=== PATIENT | male | born 1945 | race Caucasian/White ===

== ENCOUNTER 2017-11-24 18:32 | Emergency (ER) | payer MEDICARE | END 2017-11-24 18:40 | disposition left against medical advice (07) | LOC: ER 18:32 | DX: Z53.21 Procedure and treatment not carried out due to patient leaving prior to being seen by health care provider (principal) ==

== ENCOUNTER 2020-02-04 20:16 | Emergency (ER) | payer MEDICARE, OTHER ==
[~2020-02-04] VITALS: Ht 175.3 cm; Wt 80.3 kg
[2020-02-04] MEDS ORDERED: SILDENAFIL CITR20 M1 PO (20:57)
[2020-02-04] MEDS ORDERED: OPSUMIT10 MG PO (20:58)
[2020-02-04] MEDS ORDERED: Klor-Con 1010 MEQ PO (20:58)
[2020-02-04] MEDS ORDERED: FINA5 PO (20:59)
[2020-02-04] MEDS ORDERED: FURO40 PO (20:59)
[2020-02-04] MEDS ORDERED: ASPI81CH PO (21:00)
[2020-02-04] MEDS ORDERED: LIPITOR80 MG PO (21:00)
[2020-02-04] MEDS ORDERED: ALBU90OI INH (21:01)
[2020-02-04 22:01] LABS: BASOPHILS ABSOLUTE AUTO 0.06 K/mm3 (0.00-0.23); BASOPHILS PERCENT AUTO 1 % (0-2); EOSINOPHILS ABSOLUTE AUTO 0.14 K/mm3 (0.00-0.68); EOSINOPHILS PERCENT AUTO 2 % (0-6); Hematocrit 47.9 % (37.0-53.0); Hemoglobin 15.4 g/dL (13.5-17.5); IMMATURE GRAN ABSOLUTE AUTO 0.02 K/mm3 (0.00-0.10); IMMATURE GRAN PERCENT AUTO 0 % (0-1); LYMPHOCYTES ABSOLUTE AUTO 1.84 K/mm3 (0.84-5.20); LYMPHOCYTES PERCENT AUTO 26 % (21-46); MONOCYTES ABSOLUTE AUTO 0.63 K/mm3 (0.16-1.47); MONOCYTES PERCENT AUTO 9 % (4-13); Mean Corpuscular HGB Conc 32.2 g/dL (31.5-36.5); Mean Corpuscular Volume 96 fL (80-100); Mean Platelet Volume 11.2 fL (9.1-12.4); NEUTROPHILS ABSOLUTE AUTO 4.45 K/mm3 (1.96-9.15); NEUTROPHILS PERCENT AUTO 62 % (41-73); Platelet Count 103 K/mm3 (150-400); RDW Coefficient Variation 13.3 % (11.7-14.2); RDW Standard Deviation 47.6 fL (35.1-46.3); Red Blood Cell Count 4.97 M/mm3 (4.30-5.90); White Blood Cell Count 7.14 K/mm3 (4.00-11.30)
[2020-02-04 22:17] LABS: Alanine Aminotransfer (ALT/SGP 22 U/L (12-78); Albumin, Blood 3.8 g/dL (3.4-5.0); Albumin/Globulin Ratio 0.8 (0.8-1.8); Alk Phos 78 U/L (50-136); Anion Gap 4 mmol/L (6-16); Aspartate Aminotrans (AST/SGOT 30 U/L (12-37); Bilirubin, Total 2.3 mg/dL (0.1-1.0); Blood Urea Nitrogen 19 mg/dL (8-24); CO2, Blood 29 mmol/L (21-32); Calcium, Blood 8.9 mg/dL (8.5-10.1); Chloride, Blood 107 mmol/L (98-108); Creatinine, Blood 1.27 mg/dL (0.60-1.20); Globulin, Blood 4.7 g/dL (2.2-4.0); Glomerular Filtration Rate 59 (60-); Glucose, Blood 109 mg/dL (70-99); Potassium, Blood 3.8 mmol/L (3.5-5.5); Sodium, Blood 140 mmol/L (136-145); Total Protein, Blood 8.5 g/dL (6.4-8.2); Troponin I <0.015 ng/mL (0.000-0.040)
== END 2020-02-05 00:01 | disposition home or self-care (01) ==
LOC: ER 20:16
PROVIDERS: Emergency Medicine
DX: M79.604 Pain in right leg (principal); I50.9 Heart failure, unspecified; Z88.0 Allergy status to penicillin; Z88.2 Allergy status to sulfonamides; Z88.1 Allergy status to other antibiotic agents; Z79.82 Long term (current) use of aspirin; Z87.891 Personal history of nicotine dependence; Z79.899 Other long term (current) drug therapy
CPT/HCPCS: 36415; 71045; 80053; 83880; 84484; 85025; 93005; 93010; 93971; 99284-25; J3010

== ENCOUNTER 2020-12-11 17:34 | Emergency (ER) | payer MEDICARE, OTHER ==
[~2020-12-11] VITALS: Ht 175.3 cm; Wt 72.6 kg
[~2020-12-11 17:34] MED LIST: ALBU90OI INH; ASPI81CH PO; FINA5 PO; FURO40 PO; Klor-Con 1010 MEQ PO; LIPITOR80 MG PO; OPSUMIT10 MG PO; SILDENAFIL CITR20 M1 PO
[2020-12-11 18:26] LABS: BASOPHILS ABSOLUTE AUTO 0.06 K/mm3 (0.00-0.23); BASOPHILS PERCENT AUTO 1 % (0-2); EOSINOPHILS ABSOLUTE AUTO 0.19 K/mm3 (0.00-0.68); EOSINOPHILS PERCENT AUTO 2 % (0-6); Hemoglobin 16.4 g/dL (13.5-17.5); IMMATURE GRAN ABSOLUTE AUTO 0.03 K/mm3 (0.00-0.10); IMMATURE GRAN PERCENT AUTO 0 % (0-1); LYMPHOCYTES ABSOLUTE AUTO 2.55 K/mm3 (0.84-5.20); LYMPHOCYTES PERCENT AUTO 30 % (21-46); MONOCYTES ABSOLUTE AUTO 0.82 K/mm3 (0.16-1.47); MONOCYTES PERCENT AUTO 10 % (4-13); Mean Corpuscular HGB 31.4 pg (26.0-34.0); Mean Corpuscular HGB Conc 33.5 g/dL (31.5-36.5); Mean Corpuscular Volume 94 fL (80-100); Mean Platelet Volume 9.8 fL (9.1-12.4); NEUTROPHILS ABSOLUTE AUTO 4.78 K/mm3 (1.96-9.15); NEUTROPHILS PERCENT AUTO 57 % (41-73); Platelet Count 128 K/mm3 (150-400); RDW Coefficient Variation 13.5 % (11.7-14.2); RDW Standard Deviation 46.6 fL (35.1-46.3); Red Blood Cell Count 5.23 M/mm3 (4.30-5.90); White Blood Cell Count 8.43 K/mm3 (4.00-11.30)
[2020-12-11 18:31] LABS: Alanine Aminotransfer (ALT/SGP 21 U/L (12-78); Albumin, Blood 3.6 g/dL (3.4-5.0); Albumin/Globulin Ratio 0.8 (0.8-1.8); Alk Phos 74 U/L (50-136); Anion Gap 5 mmol/L (6-16); Aspartate Aminotrans (AST/SGOT 28 U/L (12-37); Bilirubin, Total 3.4 mg/dL (0.1-1.0); Blood Urea Nitrogen 20 mg/dL (8-24); Bun/Creatinine Ratio 16.9 (12.0-20.0); CO2, Blood 23 mmol/L (21-32); Calcium, Blood 9.1 mg/dL (8.5-10.1); Chloride, Blood 105 mmol/L (98-108); Creatinine, Blood 1.18 mg/dL (0.60-1.20); Globulin, Blood 4.8 g/dL (2.2-4.0); Glomerular Filtration Rate 60 (60-); Glucose, Blood 99 mg/dL (70-99); Potassium, Blood 4.5 mmol/L (3.5-5.5); Sodium, Blood 133 mmol/L (136-145); Total Protein, Blood 8.4 g/dL (6.4-8.2); Troponin I <0.015 ng/mL (0.000-0.040)
[2020-12-11] MEDS ORDERED: ORENITRAM PO (21:01)
== END 2020-12-11 22:30 | disposition home or self-care (01) ==
LOC: ER 17:34
PROVIDERS: Physician Assistant
DX: R07.89 Other chest pain (principal); I50.9 Heart failure, unspecified; I27.20 Pulmonary hypertension, unspecified; I25.2 Old myocardial infarction; Z88.0 Allergy status to penicillin; Z88.2 Allergy status to sulfonamides; Z88.1 Allergy status to other antibiotic agents; Z79.899 Other long term (current) drug therapy; Z79.82 Long term (current) use of aspirin; Z87.891 Personal history of nicotine dependence
CPT/HCPCS: 36415; 71046; 80053; 83690; 83880; 84484; 85025; 93005; 93010; 99285-25

== ENCOUNTER 2022-01-01 23:59 | Inpatient (IN) | payer MEDICARE, OTHER ==
[~2022-01-01] VITALS: Ht 172.7 cm; Wt 74.5 kg
[~2022-01-01 23:59] MED LIST changes: +ATOR40TA PO; -LIPITOR80 MG PO; +ORENITRAM PO
[2022-01-02 02:09] LABS: Albumin/Globulin Ratio 0.8 (0.8-1.8); Bilirubin, Total 3.3 mg/dL (0.1-1.0); Bun/Creatinine Ratio 14.2 (12.0-20.0); Calcium, Blood 9.5 mg/dL (8.5-10.1); Creatinine, Blood 1.06 mg/dL (0.60-1.20); Globulin, Blood 5.2 g/dL (2.2-4.0); Potassium, Blood 4.3 mmol/L (3.5-5.5); Total Protein, Blood 9.2 g/dL (6.4-8.2)
[2022-01-02 02:10] LABS: BASOPHILS ABSOLUTE AUTO 0.03 K/mm3 (0.00-0.23); BASOPHILS PERCENT AUTO 0 % (0-2); EOSINOPHILS ABSOLUTE AUTO 0.06 K/mm3 (0.00-0.68); EOSINOPHILS PERCENT AUTO 1 % (0-6); Hematocrit 46.3 % (37.0-53.0); Hemoglobin 14.9 g/dL (13.5-17.5); IMMATURE GRAN ABSOLUTE AUTO 0.02 K/mm3 (0.00-0.10); IMMATURE GRAN PERCENT AUTO 0 % (0-1); LYMPHOCYTES ABSOLUTE AUTO 0.85 K/mm3 (0.84-5.20); LYMPHOCYTES PERCENT AUTO 13 % (21-46); MONOCYTES ABSOLUTE AUTO 0.81 K/mm3 (0.16-1.47); MONOCYTES PERCENT AUTO 12 % (4-13); Mean Corpuscular HGB 31.4 pg (26.0-34.0); Mean Corpuscular HGB Conc 32.2 g/dL (31.5-36.5); Mean Corpuscular Volume 98 fL (80-100); Mean Platelet Volume 10.4 fL (9.1-12.4); NEUTROPHILS ABSOLUTE AUTO 5.03 K/mm3 (1.96-9.15); NEUTROPHILS PERCENT AUTO 74 % (41-73); Platelet Count 106 K/mm3 (150-400); RDW Coefficient Variation 14.5 % (11.7-14.2); RDW Standard Deviation 52.3 fL (35.1-46.3); Red Blood Cell Count 4.75 M/mm3 (4.30-5.90)
--- NOTE | 2022-01-02 06:25 | NUR ---
ARRIVAL TO PCU PT ARRIVED TO PCU 11 VIA ED GURNEY. PT ALERT AND TALKING TO STAFF. ON 15L OXYMIZER. SP02 DROPPED TO 85% WITH STANDING AT BEDSIDE. PT INSTRUCTED TO CALL PRIOR TO GETTING OOB. CALL LIGHT IN REACH. BED ALARM IN PLACE.
[2022-01-02 12:49] LABS: BASOPHILS PERCENT AUTO 0 % (0-2); EOSINOPHILS PERCENT AUTO 0 % (0-6); Hemoglobin 14.2 g/dL (13.5-17.5); IMMATURE GRAN ABSOLUTE AUTO 0.01 K/mm3 (0.00-0.10); IMMATURE GRAN PERCENT AUTO 0 % (0-1); LYMPHOCYTES ABSOLUTE AUTO 0.52 K/mm3 (0.84-5.20); LYMPHOCYTES PERCENT AUTO 15 % (21-46); MONOCYTES ABSOLUTE AUTO 0.05 K/mm3 (0.16-1.47); MONOCYTES PERCENT AUTO 1 % (4-13); Mean Corpuscular HGB 31.3 pg (26.0-34.0); Mean Corpuscular HGB Conc 32.3 g/dL (31.5-36.5); Mean Corpuscular Volume 97 fL (80-100); Mean Platelet Volume 10.6 fL (9.1-12.4); NEUTROPHILS PERCENT AUTO 83 % (41-73); Platelet Count 100 K/mm3 (150-400); RDW Coefficient Variation 14.6 % (11.7-14.2); Red Blood Cell Count 4.54 M/mm3 (4.30-5.90); White Blood Cell Count 3.48 K/mm3 (4.00-11.30)
[2022-01-02 13:22] LABS: Albumin, Blood 3.6 g/dL (3.4-5.0); Albumin/Globulin Ratio 0.7 (0.8-1.8); Bilirubin, Total 3.3 mg/dL (0.1-1.0); Bun/Creatinine Ratio 14.4 (12.0-20.0); Calcium, Blood 8.9 mg/dL (8.5-10.1); Creatinine, Blood 1.11 mg/dL (0.60-1.20); Globulin, Blood 5.1 g/dL (2.2-4.0); Potassium, Blood 4.2 mmol/L (3.5-5.5); Total Protein, Blood 8.7 g/dL (6.4-8.2)
[2022-01-02] MEDS ORDERED: TYVASO INH (13:35)
--- NOTE | 2022-01-02 13:55 | NUR ---
Spiritual care visit conducted. Upon receiving a referral for spiritual care, I visit pt. Pt talks at length about his family, his Christain yessica and his careers through the years. 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 He states that he will be unstoppable until God calls him home. He says, "when God calls then I will be ready." I reinforce helpful attitudes and practices and provide theological insights, prayer and gentle genetic counsellor. Pt responds well and shows signs of a peace renewed
--- NOTE | 2022-01-02 18:03 | NUR ---
SHIFT SUMMARY PT ALERT, HE WAS SLOW TO WAKE THIS AM, BUT IS ORIENTED X3. PT DOES EXHIBIT SOME ANXIETY RELATED TO HOSPITALIZATION BUT IS COOPERATIVE. HYPOTENSION NOTED, SILDENAFIL IS HELD RELATED TO SOFT PRESSURES, PHARMACY IS CONSULTED, DR MENDEZ IS AWARE THAT IT IS HELD WELL. DR MENDEZ REACHED OUT TO DR FIGUEROA THE PT'S BAND SCROLL SAW OPERATOR AT [facility] TODAY, ORDER TO RESUME PT'S HOME TYVASO ORDERED PT'S FMAILY BROUGHT IT TO THE HOSPITAL, RT IS NOTIFIED THAT THIS MEDICATION HAS BEEN ORDERED. PT'S O2 HAS BEEN TITRATED DOWN TO 13L FROM 15L, WITH SPO2 OF 92%. PT REFUSES STAFF HELP TOILETING DESPITE HIGH LEVEL OF OXYGEN REQUIREMENT, HE IS EDUCATED BUT CONTINUES TO REFUSE.
--- NOTE | 2022-01-02 19:00 | NUR ---
ASSUMED CARE PT ALERT AND TALKING TO STAFF. ON AIRBORNE PRECAUTIONS. PT ON 13L/MIN VIA OXYMIZER, SPO2 GREATER THAN 90%. EDUCATED PT ON USING CALL LIGHT TO GET OOB. CALL LIGHT IN REACH AND BED ALARM IN PLACE.
[2022-01-03 03:54] LABS: BASOPHILS ABSOLUTE AUTO 0.01 K/mm3 (0.00-0.23); BASOPHILS PERCENT AUTO 0 % (0-2); EOSINOPHILS PERCENT AUTO 0 % (0-6); Hematocrit 38.9 % (37.0-53.0); Hemoglobin 12.9 g/dL (13.5-17.5); IMMATURE GRAN ABSOLUTE AUTO 0.02 K/mm3 (0.00-0.10); IMMATURE GRAN PERCENT AUTO 1 % (0-1); LYMPHOCYTES ABSOLUTE AUTO 1.09 K/mm3 (0.84-5.20); LYMPHOCYTES PERCENT AUTO 26 % (21-46); MONOCYTES ABSOLUTE AUTO 0.72 K/mm3 (0.16-1.47); MONOCYTES PERCENT AUTO 17 % (4-13); Mean Corpuscular HGB 31.1 pg (26.0-34.0); Mean Corpuscular HGB Conc 33.2 g/dL (31.5-36.5); Mean Corpuscular Volume 94 fL (80-100); Mean Platelet Volume 10.5 fL (9.1-12.4); NEUTROPHILS ABSOLUTE AUTO 2.44 K/mm3 (1.96-9.15); NEUTROPHILS PERCENT AUTO 57 % (41-73); Platelet Count 114 K/mm3 (150-400); RDW Coefficient Variation 14.3 % (11.7-14.2); Red Blood Cell Count 4.15 M/mm3 (4.30-5.90); White Blood Cell Count 4.28 K/mm3 (4.00-11.30)
[2022-01-03 04:26] LABS: Albumin, Blood 3.2 g/dL (3.4-5.0); Albumin/Globulin Ratio 0.7 (0.8-1.8); Calcium, Blood 8.9 mg/dL (8.5-10.1); Creatinine, Blood 1.2 mg/dL (0.60-1.20); Globulin, Blood 4.7 g/dL (2.2-4.0); Potassium, Blood 5.1 mmol/L (3.5-5.5); Total Protein, Blood 7.9 g/dL (6.4-8.2)
--- NOTE | 2022-01-03 04:41 | NUR ---
CALL TO MD DR GILLIAM NOTIFIED OF SODIUM 132. NO ORDERS RECEIVED AT THIS TIME.
--- NOTE | 2022-01-03 04:43 | NUR ---
SHIFT SUMMARY NO ACUTE EVENTS OVERNIGHT. PT SEMI-PRONED FOR ABOUT FOUR HOURS. TOLERATED WELL. SPO2 IMPROVED TO 95%. CURRENTLY ON 13L VIA HIGH FLOW NC. SBP 90-100'S. NO REPORTS OF PAIN T/O SHIFT. SEE SHIFT ASSESSMENT FOR FULL ASSESSMENT. MOVES SELF SIDE TO SIDE IN BED INDEPENDENTLY. USING URINAL AT BEDSIDE. BED ALARM IN PLACE.
--- NOTE | 2022-01-03 08:45 | NUR ---
THIS RN TO ROOM TO ASSESS PT PCT CALLED AND STS THAT PT HAS BLOODY NOSE. PT NOTED TO SHOVING LARGE AMOUNTS OF KLEENEX UP HIS NOSE AND IS REMOVING CLOTS FROM LT NARE. THIS RN ATTEMPTED TO HOLD PRESSURE NO NOSE TO STOP THE BLEEDING PT BEING SHOUTING THAT THIS RN IS APPLYING TOO MUCH PRESSURE AND "CLEARLY YOU DO NOT KNOW WHAT YOU ARE DOING" PT BEGINS CUSSING AT STAFF AND DEMANDS THAT HE BE PROVIDED WITH "A COMPETENT NURSE", PT CONTINUES TO ESCILATE AND BELITTLE STAFF. PT'S SPO2 94% BLEEDING HAS SLOWED WITH PRESSURE, THIS RN STEPPED OUT AND HOUSEKEEPER/CUSTODIAN/LAUNDRY WORKER AND CLINICAL COORDINATOR ARE NOTIFIED OF THE CONFLICT WITH PT. NURSING SAND CUTTING MACHINE OPERATOR IS ALSO AWARE OF PT BEHAVIOR
--- NOTE | 2022-01-03 17:47 | NUR ---
Shift Summary Pt has been resting in bed throughout the day, they slept for a few hours in the early afternoon. Pt has been titrated to 11L/min of oxygen on nasal cannula. Pt became very short of breath while trying to bathe self sitting on edge of bed. Pt has denied c/o pain or discomfort and has frequently repositioned self for comfort. Pt stated that they "wish I could just do all this at home." Pt needed several reminders to replace nasal cannula in the nares after cleaning their nose of mucus.
--- NOTE | 2022-01-04 05:08 | NUR ---
SHIFT SUMMARY PT IS A/Ox3-4 AND FOLLOWS DIRECTIONS FROM STAFF. AT THE START OF SHIFT, PT WAS ON 13L O2 VIA NC, BUT WAS LATER PLACED ON AIRVO HIS OXYGEN NEEDS INCREASED. SINCE THEN, PT HAS MANAGED TO MAINTAIN SPO2 >93% T/O THE SHIFT WITH MINIMAL SOB NOTED. BP'S HAVE BEEN SOFT RANGING FROM THE LOW 100'S TO UPPER 90'S SBP. PT REPORTS THIS IS HIS BASELINE BP. PT HAS BEEN REPOSITIONED TO HIS SIDES T/O THE NIGHT, BUT PT STATED HE WOULD AGREEABLE TO PRONING IF NEED BE. NADN, VSS T/O THE SHIFT
--- NOTE | 2022-01-04 16:49 | NUR ---
SHIFT SUMMARY: NEURO: WNL CARDIAC: sinus rhythm with known ST depressions that were present on admission EKG. No reports of chest pain RESPIRATORY: tolerating Airvo 40L/min 78% fiO2. GI/: tolerating diet well. Urinary frequency. Using urinal independantly. SKIN: no breakdown noted. skin dry PSYCH/SOCIAL: WNL, family at bedside and very supportive for lunch. This RN called pt's and updated her per family request.
--- NOTE | 2022-01-04 17:08 | NUR ---
ASSUMPTION OF CARE: PATIENT HAS NO ACUTE NEEDS,IS IN NO ACUTE DISTRESS UPON ASSUMPTION. PATIENT CURRENTLY SLEEPING. NO CONCERNS FROM REPORTING RN WILL CONTINUE TO MONITOR UNTIL SHIFT CHANGE. NO CHEST PAIN OR PRESSURE AT THIS TIME.
--- NOTE | 2022-01-05 06:59 | NUR ---
NO ACUTE EVENTS OVERNIGHT LAST NIGHT. PATIENT REPORTS LESS DYSPNEA WITH EXERTION AND IS ANXIOUS TO GET HOME SOON HE CAN. SUPPLEMENTAL OXYGEN SUPPORT WITH AIRVO REMAINS IN PLACE. SETTINGS CHANGED FROM 40 LPM / 70% FiO2 AT THE BEGINNING OF THE NIGHT TO 40 LPM / 60% FiO2, WITH OXYGEN SATURATION LEVELS MAINTAINING IN THE 93 - 96% RANGE. BLOOD PRESSURE REMAINS IN NORMAL RANGE FOR PATIENT WITH SBPS IN THE 90S AND MAPs IN THE 60S - 70S.
[2022-01-05 14:46] LABS: BASOPHILS PERCENT AUTO 0 % (0-2); EOSINOPHILS PERCENT AUTO 0 % (0-6); Hematocrit 40.1 % (37.0-53.0); Hemoglobin 13.6 g/dL (13.5-17.5); IMMATURE GRAN ABSOLUTE AUTO 0.08 K/mm3 (0.00-0.10); IMMATURE GRAN PERCENT AUTO 1 % (0-1); LYMPHOCYTES ABSOLUTE AUTO 0.81 K/mm3 (0.84-5.20); LYMPHOCYTES PERCENT AUTO 12 % (21-46); MONOCYTES ABSOLUTE AUTO 0.32 K/mm3 (0.16-1.47); MONOCYTES PERCENT AUTO 5 % (4-13); Mean Corpuscular HGB 32.2 pg (26.0-34.0); Mean Corpuscular HGB Conc 33.9 g/dL (31.5-36.5); Mean Corpuscular Volume 95 fL (80-100); NEUTROPHILS ABSOLUTE AUTO 5.45 K/mm3 (1.96-9.15); NEUTROPHILS PERCENT AUTO 82 % (41-73); Platelet Count 123 K/mm3 (150-400); RDW Coefficient Variation 14.1 % (11.7-14.2); Red Blood Cell Count 4.22 M/mm3 (4.30-5.90); White Blood Cell Count 6.66 K/mm3 (4.00-11.30)
[2022-01-05 15:06] LABS: Albumin, Blood 3.2 g/dL (3.4-5.0); Anion Gap 9 mmol/L (6-16); Blood Urea Nitrogen 33 mg/dL (8-24); Bun/Creatinine Ratio 34.4 (12.0-20.0); CO2, Blood 22 mmol/L (21-32); Calcium, Blood 8.2 mg/dL (8.5-10.1); Chloride, Blood 101 mmol/L (98-108); Creatinine, Blood 0.96 mg/dL (0.60-1.20); Glomerular Filtration Rate 81 (60-); Glucose, Blood 174 mg/dL (70-99); Phosphorus, Blood 3.3 mg/dL (2.5-4.9); Potassium, Blood 4.8 mmol/L (3.5-5.5); Sodium, Blood 132 mmol/L (136-145)
--- NOTE | 2022-01-05 16:25 | NUR ---
END OF SHIFT: NEURO:A / O X 4, PLESANT COOPERATIVE WITH CARE ABLE TO MAKE NEEDS KNOWN. CARDIAC: SB TO SR WITH 1ST DEGREE AV BLOCK AND DEPRESSED ST PROVIDER KNOWN, PATIENT DENIES CHEST PAIN/PRESSURE, OR SOB. BLOOD PRESSURES HAVE BEEN SOFT, BUT MAP ALWAYS > 60, WILL CONTINUE TO MONITOR S&S, PRN , AND PER UNIT PROTOCOL. PULM: PATIENT IS CURRENLTY ON AIRVO WITH 40L AND 50% SPO2 CURRENLTY 94 AND ALWAYS > 91%, CONT PULSE OX IN PLACE. NO COUGH, HAS BEEN DOING OWN TAVYASO WITH RN ASISTANCE AND DOCUMENTATION. GI/: PATIENT HAS BEEN HAVING A GREAT APPETITE, URINE OUTPUT HAS BEEN >30/HR. NO BM FOR THIS RN AT TIME OF NOTE. WILL CONTINUE TO MONITOR, BOWEL TONES PRESENT AND ACTIVE. NO CONCERNS FROM THIS RN, OR PATIENT WILL COTINUE TO MONITOR UNTIL SHIFT CHANGE.
--- NOTE | 2022-01-06 06:11 | NUR ---
NO ACUTE EVENTS OVERNIGHT LAST NIGHT. MR. VILLARREAL WAS ABLE TO MAINTAIN HIS OXYGEN SATURATION GREATER THAN 90% THROUGHOUT THE NGHT, INCLUDING DURING PERIODS OF ACTIVITY (TRANSFERING TO AND FROM BEDSIDE COMMODE AND MOVING TO SIDE OF THE BED TO USE THE URINAL). HE IS ANXIOUS TO INCREASE HIS ACTIVITY LEVEL.
[2022-01-06 10:15] LABS: BASOPHILS PERCENT AUTO 0 % (0-2); EOSINOPHILS PERCENT AUTO 0 % (0-6); Hematocrit 41.3 % (37.0-53.0); Hemoglobin 13.8 g/dL (13.5-17.5); IMMATURE GRAN ABSOLUTE AUTO 0.06 K/mm3 (0.00-0.10); IMMATURE GRAN PERCENT AUTO 1 % (0-1); LYMPHOCYTES ABSOLUTE AUTO 0.98 K/mm3 (0.84-5.20); LYMPHOCYTES PERCENT AUTO 13 % (21-46); MONOCYTES ABSOLUTE AUTO 0.59 K/mm3 (0.16-1.47); MONOCYTES PERCENT AUTO 8 % (4-13); Mean Corpuscular HGB 31.3 pg (26.0-34.0); Mean Corpuscular HGB Conc 33.4 g/dL (31.5-36.5); Mean Corpuscular Volume 94 fL (80-100); Mean Platelet Volume 10.2 fL (9.1-12.4); NEUTROPHILS ABSOLUTE AUTO 6.11 K/mm3 (1.96-9.15); NEUTROPHILS PERCENT AUTO 79 % (41-73); Platelet Count 138 K/mm3 (150-400); RDW Coefficient Variation 13.9 % (11.7-14.2); RDW Standard Deviation 47.2 fL (35.1-46.3); Red Blood Cell Count 4.41 M/mm3 (4.30-5.90); White Blood Cell Count 7.74 K/mm3 (4.00-11.30)
[2022-01-06 10:33] LABS: Bun/Creatinine Ratio 36.4 (12.0-20.0); Calcium, Blood 8.3 mg/dL (8.5-10.1); Creatinine, Blood 0.93 mg/dL (0.60-1.20); Potassium, Blood 3.9 mmol/L (3.5-5.5)
--- NOTE | 2022-01-06 16:02 | NUR ---
Spiritual care visit consducted. Pt is lying in bed and alert. Pt talks at length about his family. He shares about the family unit complications, his 2 adopted sons from [place] (one of which is a special needs and at 39 y/o is totally dependent on the pt and his spouse, [place] for his care), and the different locations they have lived. Pt has been to [place] for 19 yrs. He had 2 biological sons from his 1st and one of those sones of cancer at 10 y/o. He also talks about how important it is for him to stay healthy so he can participate in the care of his and son. He explains about his yessica in further detail and mentions the encouragement, love and stregth he gains from his prayers and Bible reading. I listen empathically, reinforce helpful attitudes and practices and provide pastoral developmental training counselor and prayer. Pt responds well and shows signs of being encouraged in his yessica. I will continue to remain availble to pt and family.
--- NOTE | 2022-01-06 17:56 | NUR ---
END OF SHIFT SUMMARY NEURO: A&Ox4, PLESEANT AND COOPERATIVE WITH CARE, PATIENT REPORTS NO PAIN, AFEBRILE CARDIAC: BLOOD PRESSURES CONTINUE TO BE SOFT, MORNING DOSE OF SILDENAFIL HELD, MAP GREATER THAN 60, PATIENT DENIES CHEST PAIN, PRESSURE OR SOB AT REST, PATIENT STILL IN 1'AVB, PULSE RATE 50-70'S PULM: PATIENT TRANSFERRED FROM AIR TO 12L THIS MORNING CURRENTLY AT 8L NC SP02 >92%, INCREASED EXERTIONAL WORKLOAD GI/: NO BM TODAY, URINE >30ML/HR WILL CONTINUE TO MONITOR UNTIL THE END OF SHIFT, NO CONCERNS AT THIS TIME.
--- NOTE | 2022-01-07 02:42 | NUR ---
PT PLACED ON POKKTIMO PULSE BIOX - PULSE BIOX BROKEN ON MONITOR IN ROOM, SATS WERE 88-90% ON 6L OXYGEN VIA HIGH FLOW TUBING, O2 TURNED UP TO 8L OXYGEN - SATS 91-94% ON 8L. WILL CONTINUE TO MONITOR.
--- NOTE | 2022-01-07 03:10 | NUR ---
OXYGEN TURNED BACK DOWN TO 6L - PT HAS BEEN MAINTAINING SATS 93-94% ON 8L. PT WAS TOLD IF HIS OXYGEN LEVELS MAINTAIN ON 5L TODAY, HE MAY GET TO GO HOME. PT IS ANTICIPATING GOING HOME TODAY. WILL CONTINUE TO MONITOR OXYGEN SATS. CALL LIGHT WITHIN REACH. BED IN LOW POSITION.
--- NOTE | 2022-01-07 04:27 | NUR ---
SHIFT SUMMARY - NO ACUTE CHANGES THROUGHOUT THIS SHIFT. PT REPORTED HE HASN'T BEEN ABLE TO SLEEP, WARM BLANKETS AND TEMPERATURE TURNED UP IN ROOM FOR PT COMFORT. PT IS ANTICIPATING DISCHARGE HOME TODAY. PT HAS BEEN PLEASANT AND COOPERATIVE WITH CARE. PT'S SINUS SILAS - NSR WITH 1ST DEGREE AV BLOCK. PT HAS DENIED FEELING DIZZY OR LIGHTHEADED. PT WITH SOFT BP'S, MAP OVER 60 - SEE VS. PT IS CURRENTLY ON HIGH FLOW O2 AT 6L, OCCASIONAL DROP TO 88% SATS, BUT RECOVERS ON HIS OWN WITHIN 30 SECONDS, BACK TO 90% - 92%. PT WAS PLACED ON 8L FOR APPX 1/2 HOUR TONIGHT, SATS DROPPED TO 88-90% WITHOUT RECOVERY. WILL CONTINUE TO MONITOR UNTIL AM SHIFT CHANGE. CALL LIGHT WITHIN REACH. BED IN LOW POSITION. FLUIDS AT BEDSIDE.
[2022-01-07] MEDS ORDERED: ACET325 PO (15:48)
[2022-01-07] MEDS ORDERED: Tessalon200 MG PO (15:50)
[2022-01-07] MEDS ORDERED: DECADRON6 M2 PO (15:51)
[2022-01-07] MEDS ORDERED: FLONASE ALLERG9.9 ML (15:56)
[2022-01-07] MEDS ORDERED: Q-Tussin100 MG/5 M PO (15:56)
--- NOTE | 2022-01-07 18:01 | NUR ---
Discharge Summary Pt was transported by wheelchair to personal vehicle. All personal belongings were in the possession of the pt's spouse at time of transport. Pt declined to ask any questions or express concerns regarding discharge instructions.
== END 2022-01-07 17:47 | disposition home or self-care (01) | DRG 177 ==
LOC: ER 23:59 → PCU 01-02 04:55
PROVIDERS: Internal Medicine; Student in an Organized Health Care Education/Training Program; ADMIT Internal Medicine
PROC: XW033E5 Introduction of Remdesivir Anti-infective into Peripheral Vein, Percutaneous Approach, New Technology Group 5 (ICD-10-PCS; principal; 2022-01-02)
PROC: 3E0333Z Introduction of Anti-inflammatory into Peripheral Vein, Percutaneous Approach (ICD-10-PCS; 2022-01-02)
PROC: XW0DXM6 Introduction of Baricitinib into Mouth and Pharynx, External Approach, New Technology Group 6 (ICD-10-PCS; 2022-01-02)
PROC: 8E0ZXY6 Isolation (ICD-10-PCS; 2022-01-02)
PROC: 5A0935A Assistance with Respiratory Ventilation, Less than 24 Consecutive Hours, High Flow/Velocity Cannula (ICD-10-PCS; 2022-01-04)
DX: U07.1 COVID-19 (principal); J12.82 Pneumonia due to coronavirus disease 2019; J96.21 Acute and chronic respiratory failure with hypoxia; J44.0 Chronic obstructive pulmonary disease with (acute) lower respiratory infection; I50.32 Chronic diastolic (congestive) heart failure; R64 Cachexia; Z51.5 Encounter for palliative care; I27.21 Secondary pulmonary arterial hypertension; I11.0 Hypertensive heart disease with heart failure; I25.10 Atherosclerotic heart disease of native coronary artery without angina pectoris; R23.0 Cyanosis; I95.9 Hypotension, unspecified; Z88.0 Allergy status to penicillin; Z88.2 Allergy status to sulfonamides; Z88.1 Allergy status to other antibiotic agents; Z88.8 Allergy status to other drugs, medicaments and biological substances; Z79.899 Other long term (current) drug therapy; Z79.02 Long term (current) use of antithrombotics/antiplatelets; Z79.01 Long term (current) use of anticoagulants; Z79.82 Long term (current) use of aspirin; Z79.51 Long term (current) use of inhaled steroids; I25.2 Old myocardial infarction; Z87.891 Personal history of nicotine dependence; Z95.5 Presence of coronary angioplasty implant and graft; Z68.23 Body mass index [BMI] 23.0-23.9, adult
CPT/HCPCS: 36415; 71045; 80048; 80053; 80069; 83880; 84484; 85025; 93005; 93010; 94640; 94761; 94762; 96365; 96375; 99285-25; A9270; C9399; J0248; J1100; J1650; J1940; J7050

== ENCOUNTER 2022-03-06 14:58 | Inpatient (IN) | payer MEDICARE, OTHER ==
[~2022-03-06] VITALS: Ht 175.3 cm; Wt 76.8 kg
[~2022-03-06 14:58] MED LIST changes: +ACET325 PO; +DECADRON6 M2 PO; +FLONASE ALLERG9.9 ML; +Q-Tussin100 MG/5 M PO; +TYVASO INH; +Tessalon200 MG PO
[2022-03-06 15:38] LABS: BASOPHILS ABSOLUTE AUTO 0.07 K/mm3 (0.00-0.23); BASOPHILS PERCENT AUTO 1 % (0-2); EOSINOPHILS ABSOLUTE AUTO 0.15 K/mm3 (0.00-0.68); EOSINOPHILS PERCENT AUTO 2 % (0-6); Hematocrit 39.9 % (37.0-53.0); IMMATURE GRAN ABSOLUTE AUTO 0.03 K/mm3 (0.00-0.10); IMMATURE GRAN PERCENT AUTO 0 % (0-1); LYMPHOCYTES ABSOLUTE AUTO 2.69 K/mm3 (0.84-5.20); LYMPHOCYTES PERCENT AUTO 31 % (21-46); MONOCYTES ABSOLUTE AUTO 0.72 K/mm3 (0.16-1.47); MONOCYTES PERCENT AUTO 8 % (4-13); Mean Corpuscular HGB 31.3 pg (26.0-34.0); Mean Corpuscular HGB Conc 32.6 g/dL (31.5-36.5); Mean Corpuscular Volume 96 fL (80-100); Mean Platelet Volume 9.7 fL (9.1-12.4); NEUTROPHILS ABSOLUTE AUTO 4.92 K/mm3 (1.96-9.15); NEUTROPHILS PERCENT AUTO 57 % (41-73); Platelet Count 132 K/mm3 (150-400); RDW Coefficient Variation 15.7 % (11.7-14.2); RDW Standard Deviation 55.9 fL (35.1-46.3); Red Blood Cell Count 4.16 M/mm3 (4.30-5.90); White Blood Cell Count 8.58 K/mm3 (4.00-11.30)
[2022-03-06 16:06] LABS: Albumin, Blood 3.8 g/dL (3.4-5.0); Albumin/Globulin Ratio 0.9 (0.8-1.8); Bilirubin, Total 3.1 mg/dL (0.1-1.0); Bun/Creatinine Ratio 14.8 (12.0-20.0); Creatinine, Blood 0.95 mg/dL (0.60-1.20); Globulin, Blood 4.4 g/dL (2.2-4.0); Potassium, Blood 3.9 mmol/L (3.5-5.5); Total Protein, Blood 8.2 g/dL (6.4-8.2)
--- NOTE | 2022-03-07 01:48 | NUR ---
SPOKE TO DR CORTES REGARDING ORDERS NEEDED FOR CONTINUOUS OX AND O2 THERAPY. UPDATED ON OXYGEN REQUIREMENTS OF 15 LITERS HIGH FLOW. NEW ORDERS GIVEN
--- NOTE | 2022-03-07 05:12 | NUR ---
PATIENT ARRIVED FROM ED AT 2154 ON 8 LITERS. O2 SATURATION 84%, INCREASED TO 15 LITERS AND PATIENT MAINTAINED SATURATION BETWEEN 89% - 92%. MADE DR MURDOCK AWARE OF PATIENT STATUS AND NO NEW ORDERS GIVEN
[2022-03-07 06:33] LABS: BASOPHILS PERCENT AUTO 0 % (0-2); EOSINOPHILS PERCENT AUTO 0 % (0-6); Hematocrit 38.6 % (37.0-53.0); IMMATURE GRAN ABSOLUTE AUTO 0.02 K/mm3 (0.00-0.10); IMMATURE GRAN PERCENT AUTO 0 % (0-1); LYMPHOCYTES ABSOLUTE AUTO 1.38 K/mm3 (0.84-5.20); LYMPHOCYTES PERCENT AUTO 29 % (21-46); MONOCYTES ABSOLUTE AUTO 0.18 K/mm3 (0.16-1.47); MONOCYTES PERCENT AUTO 4 % (4-13); Mean Corpuscular HGB 31.5 pg (26.0-34.0); Mean Corpuscular HGB Conc 33.7 g/dL (31.5-36.5); Mean Corpuscular Volume 94 fL (80-100); NEUTROPHILS ABSOLUTE AUTO 3.12 K/mm3 (1.96-9.15); NEUTROPHILS PERCENT AUTO 66 % (41-73); Platelet Count 136 K/mm3 (150-400); RDW Coefficient Variation 15.5 % (11.7-14.2); RDW Standard Deviation 53.4 fL (35.1-46.3); Red Blood Cell Count 4.13 M/mm3 (4.30-5.90)
[2022-03-07 07:44] LABS: Albumin, Blood 3.3 g/dL (3.4-5.0); Albumin/Globulin Ratio 0.7 (0.8-1.8); Bilirubin, Total 2.9 mg/dL (0.1-1.0); Bun/Creatinine Ratio 15.4 (12.0-20.0); Calcium, Blood 8.9 mg/dL (8.5-10.1); Creatinine, Blood 1.04 mg/dL (0.60-1.20); Globulin, Blood 4.5 g/dL (2.2-4.0); Potassium, Blood 4.1 mmol/L (3.5-5.5); Total Protein, Blood 7.8 g/dL (6.4-8.2)
--- NOTE | 2022-03-07 10:58 | NUR ---
0715 SPOKE TO PT A/O X3, AMPARO COOP. DENIES SOB, BUT O2 ON HIFLO AT 15L. IS SATTING 89%. HANDS WARM. TURNED UP TO MAX ON HIFLO. CHECK BP. CRACKLES BASES.
--- NOTE | 2022-03-07 11:12 | NUR ---
0750 VS, 85/66, P 90, R 17, T 99.3, O2 85-89% HI FLOW MAX AIR. CALLED CHARGE TO ROOM. DISCUSSED PT SITUATION. APPEARS NOT IN DISTRESS AT THIS TIME. HE IS TALKING, EATING, PLEASANT. EXPECT COMPENSATING FOR THE TIME. AGREED BEST TO PLACE AIRVO AND CALL DR. CUI. [address] AIRVO. CALLED DR CUI. AGREES PLACE IN PCU, PLACE ON AIRVO. 0830 NEW VS. 102/76 P 98, 85-89% HIFLOW. PRESENTS NOT IN DISTRESS, CALM, TALKATIVE. EARLY CHILDHOOD ASSOCIATE STATES PCU RM 4 AMINTA RAMIREZ RN WILL BE ABLE TAKE PT. 0830 PLACED ON NONREBREATHER FULL FLOW. O2 85-88%. TOOK TO PCU 4. BEDSIDE REPORT GIVEN. PT CONTINUES TO BE PLEASANT, TALKATIME, AND PRESENTS NOT IN DISTRESS. PLACING AIRVO IN PCU AT TIME OF ARRIVAL. 0900 NOTIFIED OF TRANSFER. SHE TO SEE PT.
--- NOTE | 2022-03-07 17:33 | NUR ---
SHIFT SUMMARY TRANSFER FROM MEDICAL FLOOR AT 0900. A/A/OX4 ON NON REBREATHER ON ARRIVAL. SPEAKING FULL SENTENCES BUT LABORED BREATHING. SKIN COLOR SULLIVAN. PLACED ON AIR VO ON ARRIVAL 40L 81%. SATS MAINTAINING DURING SHIFT OF >90%. MOVES SELF ON GURNEY NEEDED. VSS, USES URINAL AT BEDSIDE, STABLE THROUGHOUT SHIFT. WILL CONTINUE TOMONITOR AND TREAT UNTIL CHANGE OF SHIFT.
[2022-03-08 04:00] LABS: Hematocrit 35.4 % (37.0-53.0); Hemoglobin 11.8 g/dL (13.5-17.5); Mean Corpuscular HGB 31.2 pg (26.0-34.0); Mean Corpuscular HGB Conc 33.3 g/dL (31.5-36.5); Mean Corpuscular Volume 94 fL (80-100); Mean Platelet Volume 9.6 fL (9.1-12.4); Platelet Count 136 K/mm3 (150-400); RDW Coefficient Variation 15.5 % (11.7-14.2); Red Blood Cell Count 3.78 M/mm3 (4.30-5.90); White Blood Cell Count 9.12 K/mm3 (4.00-11.30)
[2022-03-08 04:18] LABS: Albumin, Blood 3.1 g/dL (3.4-5.0); Albumin/Globulin Ratio 0.7 (0.8-1.8); Bilirubin, Total 2.1 mg/dL (0.1-1.0); Bun/Creatinine Ratio 20.1 (12.0-20.0); Calcium, Blood 8.7 mg/dL (8.5-10.1); Creatinine, Blood 0.99 mg/dL (0.60-1.20); Globulin, Blood 4.2 g/dL (2.2-4.0); Magnesium, Blood 2.6 mg/dL (1.6-2.4); Potassium, Blood 4.3 mmol/L (3.5-5.5); Total Protein, Blood 7.3 g/dL (6.4-8.2)
--- NOTE | 2022-03-08 04:52 | NUR ---
SHIFT SUMMARY: PT ALERT AND ORIENTED X3, ABLE TO FOLLOW COMMANDS AND MAKE NEEDS KNOWN. MILDLY FORGETFUL, ANXIOUS AT TIMES. BP STABLE, HR SR 90'S, AFEBRILE, REMAINS ON AIRVO 40L 65%, RESPIRATIONS EVEN AND UNLABORED AT REST, EXHIBITS SOB WITH ACTIVITY. PT REFUSING CARE AT TIMES, DOES NOT WANT STAFF ASSISTING WITH ADL'S. EDUCATION PROVIDED ON SAFETY AND NEEDING TO BE IN ROOM WHILE PT AMBULATES TO AND FROM BSC. BED ALARM IN PLACE. BED IN LOW, CALL LIGHT IN REACH, WILL REPORT TO ONCOMING RN.
--- NOTE | 2022-03-08 17:41 | NUR ---
SHIFT SUMMARY; ASSUMED CARE AT 0700. A/A/0X4, WITH SLIGHT INTERMITANT CONFUSION. AIR VO DURING SHIFT 40L 65%. REPOSITIONS SELF IN BED, L/S DIM T/O. REPOSITIONS SELF NEEDED, USES URINAL AT BEDSIDE, AT TIMES LABORED BREATHING WITH EXERTION, DESATS TO LOW 80'S AT TIMES IF NC NOT IN PLACE. EDUCATED ON KEEPING 02 ON, NO ACUTE CHANGES, WILL CONTINUE TOMONITOR AND TREAT UNTIL CHANGE OF SHIFT.
--- NOTE | 2022-03-09 03:18 | NUR ---
UPDATE PT SPO2 DECREASED TO 85 - 88%; PT SUSTAINED THIS FOR A WHILE. THIS RN IN TO CHECK ON PT. PT HAS MILD SOB, PT STATES HE IS "HAVING A LITTLE TROUBLE BREATHING:. THIS RN NOTIFIED RT. PT ALSO REPOSITIONED BOOSTED UP AND TO MUNOZ'S. PT STATES THIS HELPED A LITTLE. RT IN TO ROOM; AIRVO SETTINGS CHANGED TO 50 L, 72% FIO2. PT SPO2 NOW AT 92% - 94%. PT REPORTS "FEELING BETTER".
[2022-03-09 03:51] LABS: Mean Corpuscular HGB 31.3 pg (26.0-34.0); Mean Corpuscular HGB Conc 33.3 g/dL (31.5-36.5); Mean Corpuscular Volume 94 fL (80-100); Mean Platelet Volume 10.1 fL (9.1-12.4); Platelet Count 132 K/mm3 (150-400); RDW Coefficient Variation 15.5 % (11.7-14.2); RDW Standard Deviation 53.5 fL (35.1-46.3); Red Blood Cell Count 3.83 M/mm3 (4.30-5.90); White Blood Cell Count 9.78 K/mm3 (4.00-11.30)
[2022-03-09 04:08] LABS: Calcium, Blood 8.5 mg/dL (8.5-10.1); Potassium, Blood 3.9 mmol/L (3.5-5.5)
--- NOTE | 2022-03-09 06:18 | NUR ---
SHIFT SUMMARY PT REMAINS A&O X 3-4. PT PLEASANT AND COOPERATIVE WITH CARE. VSS. PT APPEARS TIRED AND GENERALIZED WEAKNESS. PT DENIES SOB, STATES HE FEELS "IT IS GETTING BETTER AT TIMES". DENIES CP OR PRESSURE. PT REMAINS ON AIRVO; SETTING CHANGED BUY RT D/T PT DESATTING. SEE NURSING NOTE. PT NOW ON 50L, 72% FIO2. SINCE SETTINGS CHANGED, PT HAS MAINTAINED SPO2 >90%. PT WAS ABLE TO REST QUITE A BIT THROUGHOUT SHIFT. PT REPOSITIONS SELF IN BED, PT ALSO USING URINAL AT BEDSIDE INDEPENDENTLY IN ROOM. PT VOIDING WELL, NO BM THIS SHIFT. CALL LIGHT IN REACH AND PT CALLS APPROPRIATELY.
--- NOTE | 2022-03-09 17:11 | NUR ---
SHIFT SUMMARY; ASSUMED CARE AT 0700. A/A/OX4. AIR VO T/O SHIFT 50L 71%. SPEAKS IN FULL SENTENCES WITH QUICK CHOPPY SPEAK, APPEARS SOB WHEN SPEAKING. DESATS WITH EXERTION TO LOW 80'S BUT RECOVERS TO >90% WITHIN A FEW MINUTES. UP TO CHAIR IN ROOM WITH SBA, SAT IN CHAIR FOR SEVERAL HOURS. USES URINAL IN BED WITHOUT DIFFICULTY, NON PRODUCTIVE COUGH DURING SHIFT. NO ACUTE CHANGES, WILL CONTINUE TO MONITOR AND TREAT UNTIL CHANGE OF SHIFT.
--- NOTE | 2022-03-09 21:49 | NUR ---
ASSUMPTION OF CARE; 1900 THIS RN ASSUMED CARE OF PT AT 1900, REPORT RECEIVED FROM ADRIANA BARKER. PT LYING IN BED W/HOB ELEVATED. PT WATCHING TV AND APPEARS RELAXED. VSS. PT ON AIRVO, SETTINGS 50 L, 72% FIO2. PT DOES NOT APPEAR TO BE IN ANY DISTRESS. DENIES SOB, CP OR PRESSURE. DENIES GENERAL PAIN. PT DOES NOT EXPRESS ANY CONCERNS OR NEEDS AT THIS TIME. PT EXTREMITIES ARE COLD TO THE TOUCH. CALL LIGHT IN REACH AND BED IN LOWEST POSITION. YELLOW NON-SKID SOCKS IN PLACE.
--- NOTE | 2022-03-09 21:54 | NUR ---
UPDATE; LATE ENTRY FRO 2100 THIS RN IN TO DO PM MEDICATIONS. PT SLEEPING BUT AWAKEND EASILY TO SOUND. PT TOOK MEDICATIONS AND TOOK A SIP OF WATER; PT THEN BEGAN TO COUGH AND CHOKE. PT WAS NOT ABLE TO CATCH HIS BREATH, SPO2 DECREASED TO 80%. THIS RN SAT PT UP, NOTIFIED RT AND CRYSTAL SLICER AND ALSO WALKED PT THROUGH TRYING TO CATCH HIS BREATH AND RECOVER. PT A&O, ABLE TO CONTINUE COUGHING ALTHOUGH STRUGGLING TO RECOVER. RT IN PT'S ROOM, INCREASED SETTINGS ON AIRVO AND STAYED IN PT ROOM W/THIS RN. PT HR INCREASED 120 - 130'S, SPO2 85 - 89%. PT WOB INCREASED. ONCE COUGHING DECREASED, PT ABLE TO TAKE SLOW, DEEP BREATHS COACHED BY THIS RN. PT SLOWLY RECOVERED, SPO2 BACK UP TO 90 - 92%. HR DECREASED TO 100'S AND WOB BEGAN TO DECREASE. PT STATES HE IS STARTING TO "FEEL A LITTLE BETTER". PT ASKS "WHAT HAPPEN". SITUATION EXPLAINED TO PT AND PT VERBALIZED UNDERSTANDING. PT NOW IN ROOM RESTING, SPO2 MAINTAINS AT 90 - 92%. HR BACK WNL. PT STILL COUGHING OCCASSIONALLY BUT IS SUBSIDING MORE. WOB DECREASED MORE NEAR PT'S BASELINE. CALL LIGHT IN REACH.
[2022-03-10 03:44] LABS: Hematocrit 35.3 % (37.0-53.0); Hemoglobin 12.1 g/dL (13.5-17.5); Mean Corpuscular HGB 31.8 pg (26.0-34.0); Mean Corpuscular HGB Conc 34.3 g/dL (31.5-36.5); Mean Corpuscular Volume 93 fL (80-100); Platelet Count 136 K/mm3 (150-400); RDW Coefficient Variation 15.3 % (11.7-14.2); RDW Standard Deviation 52.6 fL (35.1-46.3)
[2022-03-10 04:09] LABS: Calcium, Blood 8.9 mg/dL (8.5-10.1); Creatinine, Blood 0.88 mg/dL (0.60-1.20); Potassium, Blood 4.2 mmol/L (3.5-5.5)
--- NOTE | 2022-03-10 05:32 | NUR ---
SHIFT SUMMARY REMAINS A&0. VSS. PT HAD ONE EVENT OVERNIGHT R/T CHOKING ON WATER, SEE NURSING NOTED. PT DOING MUCH BETTER NOW, SPO2 MAINTAINING AT >91%. PT RESTED WELL THROUGHOUT THE SHIFT. NO OTHER EVENT OR ACUTE CHANGES. PT USING URINAL INDEPENDENTLY. NO BM FOR PHARMACIST APPRENTICE. CALL LIGHT IN REACH AND BED IN LOWEST POSITION. WILL UPDATE ONCOMING RN.
--- NOTE | 2022-03-10 17:58 | NUR ---
END OF SHIFT: NEUR: A/O X 4, PLEASANT, ABLE TO MAKE NEEDS KNOWN. SLIGHTLY FORGETFUL OF SPECIFIC DETAILS WHEN RECOLLECTING A STORY, BED ALARM IN PLACE DUE TO WEAKNESS. CARDIAC: WAP 1ST DEGREE WITH BBB AND AT TIMES SR. PATIENT HAS BEEN SOFTER ON BLOOD PRESSURE WITH INCREASED DOSE OF SILDENAFIL. MAP > 60 DURING SHIFT. PATINET DENIES CHEST PAIN/PRESSURE OR SOB. PULM: AIRVO 50L AT 65% AND SPO2 TYPICALLY >90% SPO2. PATIENT WALKED TO [facility] WITH SBA FOR BM THIS AM. URINAL AT BEDSIDE DIURESING WELL. PATIENT IN NO SIGN OF ACUTE DISTRESS WILL CONTINUE TO MONITOR UNTIL SHIFT CHANGE.
--- NOTE | 2022-03-10 21:40 | NUR ---
ASSUMPTION OF CARE 1900 THIS RN ASSUMED CARE OF PT AT 1900; REPORT RECEIVED FROM ADRIANA MURRAY. PT LYING IN BED, WATCHING TV BUT APPEARS TO BE SLEEPING. VSS; BP A LITTLE SOFT SBP 101 BUT SEEMS TO BE AROUND PT'S BASELINE. PT ON AIRVO; SETTINGS 50 L, 65 % FIO2. PT DENIES SOB, CP OR CHEST PRESSURE. DENIES GENERAL PAIN. PT BREATHING IS LABORED, RR INCREASED AT 22. SPO2 93%. PT DOES BECOME SOB W/CONVERSATION AND HAS TO TAKE BREATHS IN BETWEEN AND WOB INCREASES SOME DURING CONVERSATION. PT DENIES ANY CONCERNS OR NEEDS AT THIS TIME. SEE SHIFT ASSESSMENT FOR OTHER DETAILS. PT SETTLED AND COMFORTABLE. CALL LIGHT IN REACH.
--- NOTE | 2022-03-10 21:44 | NUR ---
UPDATE AROUND 1930 - 1944; PT SPO2 DROPPED 86 - 88%. PT WOB SLIGHTLY INCREASED AND APPEARS SOB. PT STILL CONVERSING WITH THIS RN. RT IN TO SEE PT; AIRVO SETTINGS ADJUSTED PER RT AT 50 L, 75% FIO2. PT WAS ABLE TO RECOVER WELL W/SPO2>90%. PT IS MAINTAINING SPO2 >90%. WOB DECREASED AND SOB IMPROVED.
[2022-03-11 03:32] LABS: Hematocrit 36.2 % (37.0-53.0); Hemoglobin 12.1 g/dL (13.5-17.5); Mean Corpuscular HGB 31.3 pg (26.0-34.0); Mean Corpuscular HGB Conc 33.4 g/dL (31.5-36.5); Mean Corpuscular Volume 94 fL (80-100); Mean Platelet Volume 9.2 fL (9.1-12.4); Platelet Count 133 K/mm3 (150-400); RDW Coefficient Variation 15.3 % (11.7-14.2); RDW Standard Deviation 52.8 fL (35.1-46.3); Red Blood Cell Count 3.86 M/mm3 (4.30-5.90); White Blood Cell Count 8.64 K/mm3 (4.00-11.30)
[2022-03-11 03:55] LABS: Albumin, Blood 3.2 g/dL (3.4-5.0); Albumin/Globulin Ratio 0.8 (0.8-1.8); Bilirubin, Total 2.8 mg/dL (0.1-1.0); Bun/Creatinine Ratio 27.3 (12.0-20.0); Calcium, Blood 8.8 mg/dL (8.5-10.1); Creatinine, Blood 0.95 mg/dL (0.60-1.20); Globulin, Blood 4.2 g/dL (2.2-4.0); Magnesium, Blood 2.5 mg/dL (1.6-2.4); Potassium, Blood 4.4 mmol/L (3.5-5.5); Total Protein, Blood 7.4 g/dL (6.4-8.2)
--- NOTE | 2022-03-11 06:19 | NUR ---
SHIFT SUMMARY PT REMAINS A&O, PLEASANT AND COOPERATIVE. PT HAD EPISODE OF DESATTING; SEE NURSING NOTE. AIRVO SETTINGS CHANGED BY RT; SETTINGS NOW 50 L W/75% FIO2. PT HAS MAINTAINED >90% SPO2 SINCE AND NO OTHER RESPIRATORY EPISODES. PT REPORTS HAVING A HARD TIME SLEEPING THIS SHIFT; TOWARD END OF SHIFT PT FINALLY WAS ABLE TO GET SOME REST. CALL LIGHT IN REACH AND PT USING APPROPRIATELY.
--- NOTE | 2022-03-11 10:19 | NUR ---
ASSUMED CARE OF PT AT 0700 TODAY REPORT FROM HANK WRIGHT. PT CURRENTLY SITTING UPRIGHT IN RECLINER IN ROOM ON AIRVO, SATTING IN HIGH 90S WITHOUT SOB. NO COMPLAINTS OF PAIN AT THIS TIME. MASON[place]. CALL BUTTON IN REACH.
--- NOTE | 2022-03-11 17:32 | NUR ---
END OF SHIFT SUMMARY. PT ALERT, ORIENTED, PLEASANT T/O SHIFT. O2 SATURATIONS 90S, BUT DOWN TO 80S AROUND 1700, AIRVO TITRATED TO 45% FIO2 WITH SATS RETURNING TO 90S. SBP 80S-90S WITH MAPS IN 70S. HAS DENIED PAIN, SOB, CHEST PAIN OR PRESSURE T/O SHIFT. NO OTHER SIGNIFICANT CHANGES.
[2022-03-12 03:52] LABS: Hematocrit 35.3 % (37.0-53.0); Hemoglobin 11.9 g/dL (13.5-17.5); Mean Corpuscular HGB 31.2 pg (26.0-34.0); Mean Corpuscular HGB Conc 33.7 g/dL (31.5-36.5); Mean Corpuscular Volume 92 fL (80-100); Mean Platelet Volume 9.7 fL (9.1-12.4); Platelet Count 146 K/mm3 (150-400); RDW Coefficient Variation 15.1 % (11.7-14.2); RDW Standard Deviation 51.7 fL (35.1-46.3); Red Blood Cell Count 3.82 M/mm3 (4.30-5.90)
[2022-03-12 04:09] LABS: Albumin, Blood 3.1 g/dL (3.4-5.0); Albumin/Globulin Ratio 0.8 (0.8-1.8); Bilirubin, Total 2.5 mg/dL (0.1-1.0); Bun/Creatinine Ratio 29.7 (12.0-20.0); Calcium, Blood 8.5 mg/dL (8.5-10.1); Creatinine, Blood 0.98 mg/dL (0.60-1.20); Globulin, Blood 3.9 g/dL (2.2-4.0); Potassium, Blood 4.6 mmol/L (3.5-5.5)
--- NOTE | 2022-03-12 05:46 | NUR ---
SHIFT SUMMARY ASSUMED CARE OF PT AT 1900. PT IS A/OX4. HEART SOUNDS REGULAR. LUNG SOUND COARSE. PT REMAINED ON 45L @ 73% AIRVO. PT DESATURATS WITH COUGHING FITS, BUT WILL RECOVER QUICKLY. PT C/O LUMP IN ABD, PT STATES HE HAS HAD IT FOR 2 DAYS AND HURTS WORSE WITH COUGHING. LUMP IS IN THE UPPER L QUADRANT AND IS HARD AND THE SIXE OF A GOLFBALL, PAINFUL WHEN PUSHED ON. PT USED URINAL T/O THE NIGHT. URINE IS NJ WITH SEDIMENT. PT DID NOT SLEEP AT ALL DURING THE NIGHT.
--- NOTE | 2022-03-12 08:44 | NUR ---
ASSUMED CARE OF THIS PT AT 0700, REPORT FROM AVERY WRIGHT. PT ALERT AND AWAKE IN BED. CALLING OUT FOR RN THIS AM. UPON ENTERING ROOM PT INFORMS THIS RN HE HAS BEEN COUGHING AND "HAS A LUMP" IN HIS ABDOMEN WHICH IS PAINFUL. UPON ASSESSMENT OF ABDOMEN THERE DOES APPEAR TO BE A FIRM AND TENDER TO TOUCH MASS ON RIGHT ABDOMEN. PT REPORTS THIS HAS BEEN THERE "FOR A COUPLE DAYS, FROM COUGHING TOO HARD" HOWEVER HE IS ONLY NOTIFYING STAFF TODAY AND IT HAS BECOME INCREASINGLY PAINFUL. CALL WAS PLACED TO DR CUI WHO PLANS TO ORDER IMAGING LATER TODAY. HE IS ON AIRVO, TOLERATING WELL WITH SHORT PERIODS OF DESATURATION TO 88%, BUT RECOVERS QUICKLY WITH COUGHING AND DEEP BREATHING. THIS IS LIMITED HOWEVER BY THE ABDOMINAL PAIN. DENIES CHEST PAIN OR PRESSURE OR SHORTNESS OF BREATH.
--- NOTE | 2022-03-12 17:22 | NUR ---
END OF SHIFT SUMMARY PT WAS SEEN BY DR. SHIRLEY JUDD THE ARCHAEOLOGIST TODAY. PROVIDER DISCUSSED WITH PTS [facility] PROVIDER ABOUT POSSIBLE TRANSFER TO [facility] UNFORTUNATELY SPACE IS NOT AVAILABLE. PT HAS BEEN HYPOTENSIVE FOR PAST DAYS AND CONTINUED TODAY, WITH INCREASE IN DIURETIC MEDICATIONS CALL WAS PLACED TO ARCHAEOLOGIST AND VERBAL ORDER FOR MIDODRINE, WHICH WAS GIVEN WITH IMPROVEMENT IN BLOOD PRESSURES. PT HAS BEEN HAVING EPISODES OF DESATTING BUT SATS IMPROVE WITH COUGHING AND DEEP BREATHING. CURRENTLY PT IS ON AIRVO WITH 50L O2 AT 69% FIO2. DESATS TO 70S FOR VERY BRIEF PERIODS OTHERWISE 90S. PT HAS DENIED SOB, CHEST PAIN OR PRESSURE. PT HAS BEEN COMPLAINING OF PAIN SINCE AM FROM ABDOMEN AND WENT FOR CT. ORDER WAS PLACED FOR PRN FENTANYL HOWEVER PT HAS REFUSED. PT HAS BEEN VERY INDEPENDENT IN SELF CARE AND HAS DECLINED OFFERED ASSISTANCE. ITEMS PROVIDED FOR DIMITRY BATH WHICH PT WOULD LIKE TO DO ON HIS OWN HOWEVER HAS NOT AT THIS TIME. OTHERWISE NO OTHER SIGNIFICANT CHANGES THROUGHOUT SHIFT.
[2022-03-13 03:49] LABS: Hematocrit 37.1 % (37.0-53.0); Hemoglobin 12.8 g/dL (13.5-17.5); Mean Corpuscular HGB 31.3 pg (26.0-34.0); Mean Corpuscular HGB Conc 34.5 g/dL (31.5-36.5); Mean Corpuscular Volume 91 fL (80-100); Mean Platelet Volume 9.7 fL (9.1-12.4); Platelet Count 160 K/mm3 (150-400); RDW Coefficient Variation 14.8 % (11.7-14.2); RDW Standard Deviation 49.3 fL (35.1-46.3); Red Blood Cell Count 4.09 M/mm3 (4.30-5.90); White Blood Cell Count 11.82 K/mm3 (4.00-11.30)
[2022-03-13 04:24] LABS: Albumin, Blood 3.1 g/dL (3.4-5.0); Albumin/Globulin Ratio 0.8 (0.8-1.8); Bilirubin, Total 3.3 mg/dL (0.1-1.0); Bun/Creatinine Ratio 35.2 (12.0-20.0); Calcium, Blood 8.5 mg/dL (8.5-10.1); Creatinine, Blood 1.05 mg/dL (0.60-1.20); Globulin, Blood 3.9 g/dL (2.2-4.0); Magnesium, Blood 2.2 mg/dL (1.6-2.4)
--- NOTE | 2022-03-13 06:48 | NUR ---
SHIFT SUMMARY PT ALERT, RESTLESS, FRUSTRATED W/ HAVING TO FREQUENTLY URINATE. SP02>90% ON AIRVO 50L 80% FI02. WEAK COUGH. BP SOFT BUT DID NOT NEED TO GIVE MIDODRINE THIS SHIFT. PT USED URINAL AT BEDSIDE FREQUENTLY. APPLIED CONDOM CATHETER, DRIANING CLEAR YELLOW URINE. NO BM THIS SHIFT. LASIX GTT INFUSING PER EMAR. PT DENIES PAIN. PT POTASSIUM WAS 3.0 THIS AM, DOWN FROM 4.6 YESTERDAY. CALL PLACED TO MD BECERRA. MD BECERRA W/ ORDERS FOR 40 MEQ IV K+ X1 AND TO CHECK A MAGNESIUM LEVEL. PT SLEEPING IN ROOM. CALL LIGHT IN REACH.
--- NOTE | 2022-03-13 08:00 | NUR ---
AM ASSESSMENT: Pt resting in bed after having bed bath and new IV placement. HR irreg, see tele note. LS diminished and coarse throughout. Currently on Airvo at 50L, 80%. BIox >90%. BT positive, abd slightly distended. Denies pain at this time. Pulses palp. +4 edema in BLE. Lasix gtt and potissium gtt running per orders. Call light in reach. Will continue to monitor.
--- NOTE | 2022-03-13 17:39 | NUR ---
SHIFT SUMMARY PT WITH NO APPARENT RESP DISTRESS TODAY BUT DOES SPEAK SLOWLY TO CONSERVE ENDURANCE. DOZING THIS AFTERNOON. URINATING FREQUENTLY IN SMALL AMOUNTS WHICH PT REPORTS IS HIS BASELINE. AIRVO ON AND PT TOLERATING WITH PULSE OX IN MID TO HIGH 90'S. BP IN THE 90'S WITH MIDODRINE GIVEN. LE'S WITH 3-4+ PITTING EDEMA.
--- NOTE | 2022-03-13 23:50 | NUR ---
Call to MD Resident Feliciano Leon regarding frequency of urination in patient with Lasix drip infusing. Pt had issues with leakage with use of condom yesterday per pt report and does not want it replaced. Concern for repiratory status as patient is dyspneic with minimal exertion and dependent upon Airvo at 50 lpm/75% FiO2. Frequency of urination is tiring patient out. Patient is open to Hernandez catheter insertion. Order received for indwelling catheter.
[2022-03-14 00:07] LABS: Source, Urine Foley catheter
[2022-03-14 00:51] LABS: Appearance, Urine Clear (Clear); Bilirubin, Urine Neg (Neg); Blood, Urine 2+ (Neg); Glucose Qualitative, Urine Neg (Neg); Ketones, Urine Neg (Neg); Leukocyte Esterase, Urine Neg (Neg); Nitrite, Urine Neg (Neg); Protein, Urine Neg (Neg); Specific Gravity, Urine 1.015 (1.003-1.022); Urobilinogen, Urine NORM (Normal)
[2022-03-14 01:10] LABS: Color, Urine Pale Yellow (P-Yellow)
[2022-03-14 01:12] LABS: Bacteria Rare /hpf; Squamous Epithelial Cells Rare /hpf (Few); White Blood Cells, Urine 0-2 /hpf (0-5)
--- NOTE | 2022-03-14 02:19 | NUR ---
Call to MD Resident Feliciano Leon regarding hypotension. Most recent blood pressure is 83/53 with MAP of 63. Pt is asymptomatic while lying in bed. Pt has been receiving Midodrine 10 mg TID and Florinef 0.1 mg BID. Lasix drip infusing at 5 mg per hour. MD Leon to review chart and determine course of action.
--- NOTE | 2022-03-14 03:06 | NUR ---
FOLLOW UP TO PREVIOUS CALL TO MD BRADY MILLER REGARDING HYPOTENSION. I ADVISED MD MILLER THAT I PLACED THE LASIX DRIP ON HOLD PENDING REVIEW OF PLAN OF CARE. IN THAT TIME, BLOOD PRESSURE HAS IMPROVED SLIGHTLY FROM 81/54 TO CURRENT BLOOD PRESSURE OF 87/60 WITH MAP OF 69. PER MD MILLER, KEEP LASIX DRIP ON HOLD AND RECHECK BLOOD PRESSURE IN 30 MINUTES. IF CONTINUED IMPROVEMENT WITH BLOOD PRESSURE, KEEP LASIX DRIP ON HOLD UNTIL ATTENDING PHYSICIAN CAN REVIEW ORDER THIS MORNING. WILL CONTINUE TO MONITOR
[2022-03-14 04:30] LABS: Hematocrit 36.9 % (37.0-53.0); Hemoglobin 12.9 g/dL (13.5-17.5); Mean Corpuscular HGB 31.4 pg (26.0-34.0); Mean Corpuscular Volume 90 fL (80-100); Mean Platelet Volume 9.7 fL (9.1-12.4); Platelet Count 182 K/mm3 (150-400); RDW Coefficient Variation 14.7 % (11.7-14.2); RDW Standard Deviation 48.4 fL (35.1-46.3); Red Blood Cell Count 4.11 M/mm3 (4.30-5.90); White Blood Cell Count 13.45 K/mm3 (4.00-11.30)
[2022-03-14 05:00] LABS: Albumin, Blood 2.8 g/dL (3.4-5.0); Albumin/Globulin Ratio 0.8 (0.8-1.8); Bilirubin, Total 3.8 mg/dL (0.1-1.0); Bun/Creatinine Ratio 38.3 (12.0-20.0); Calcium, Blood 8.4 mg/dL (8.5-10.1); Creatinine, Blood 1.15 mg/dL (0.60-1.20); Globulin, Blood 3.7 g/dL (2.2-4.0); Potassium, Blood 2.7 mmol/L (3.5-5.5); Total Protein, Blood 6.5 g/dL (6.4-8.2)
--- NOTE | 2022-03-14 06:38 | NUR ---
SEE PREVIOUS NOTES DURING SHIFT FOR ADDITIONAL INFORMATION LASIX DRIP REMAINS ON HOLD DUE TO HYPOTENSION AND UNTIL DAY ATTENDING PHYSICIAN REVIEW OF ORDER. BLOOD PRESSURE HAS IMPROVED SLIGHTLY SINCE LASIX DRIP HAS BEEN ON HOLD. 0900 DOSE OF MIDODRINE ADMINISTERED EARLY FOR PERSISTENT HYPOTENSION. PATIENT HAS BEEN RESTING IN BED AND HAS BEEN ASYMPTOMATIC, NO LIGHT-HEADED OR DIZZINESS, FULLY ALERT AND ORIENTED. POTASSIUM 2.7 WITH THIS MORNING'S LABS. MD MILLER NOTIFIED AND ORDER RECEIVED FOR 60 mEQ OF ORAL POTASSIUM, TO BE ADMINISTERED 20 mEQ EACH HOUR X 3 DOSES.
--- NOTE | 2022-03-14 09:15 | NUR ---
UPDATE SPOKE TO DR CUI REGARDING PT POTASSIUM ORDERS AND LASIX. PER REPORT FROM TECHNICAL SALES DIRECTOR RN, LASIX WAS STOPPED DUE TO LOW BP AND LOW MAP. BP INCREASED, MAP INCREASED TO 74. PER DR CUI, LASIX TO BE RESTARTED AT THIS TIME. PT GIVEN ADDITIONAL 60MEQ OF POTASSIUM TOTAL FOR LOW POTASSIUM THIS MORNING.
--- NOTE | 2022-03-14 11:05 | NUR ---
UPDATE PT BP AND MAP SLOWLY DECREASING SINCE RESTARTING LASIX GTT. MOST RECENT, 79/57, MAP 65. DR CUI NOTIFIED. TELEPHONE ORDER TO D/C LASIX AT THIS TIME.
--- NOTE | 2022-03-14 18:14 | NUR ---
SHIFT SUMMARY PT A/O X4. RESISTANT TO SOME CARE, SUCH REPOSITIONING AND GETTING INTO RECLINER. PT POTASSIUM UP TO 3.3 AFTER ADDITIONAL DOSES THIS MORNING. PT LASIX REMAINS ON HOLD DUE TO BLOOD PRESSURE DROPPING WITH INFUSION. PT BP SOFT, BUT MAP IN THE 70'S ONCE LASIX WAS D/C'D. PT C/O PAIN IN THE RUQ THIS AFTERNOON AND DENIED ANY RELIEF WITH TYLENOL. PT MEDICATED WITH 25MCG OF FENTANYL AND WAS ABLE TO GET SOME RELIEF. DR LANDEROS ORDER ABD XRAY DUE TO PERSISTANT PAIN IN THIS AREA. REPEAT CHEST XRAY ALSO ORDERED THIS EVENING. PT MORE FATIGUED THIS AFTERNOON, BUT RESPONSIVE TO VERBAL STIMULI AND RESPONDED APPROPRIATELY. SPO2 REMAINED ABOVE 88%. PT ON AIRVO AT 50L/65%. PT AND SON AT BEDSIDE THIS AFTERNOON AND UPDATED ON PLAN OF CARE. PT SON, DONTA VILLARREAL, ALSO CALLED TO FOR UPDATE ON PT STATUS. PT GAVE APPROVAL FOR THIS RN TO TALK TO SON. PT SON UPDATED AND PLANS TO COME VISIT THE PT TOMORROW.
--- NOTE | 2022-03-14 21:35 | NUR ---
CALL TO MD RESIDENT MILLER REGARDING PT C/O OF INCREASED PAIN TO RUQ & RLQ OF ABDOMEN. PAIN SEEMS WORSE SINCE PO INTAKE OF NIGHT TIME PILLS AND WATER. NO RELIEF WITH TYLENOL AND CONCERNS REGARDING CLARITY OF MENTATION IN PATIENT AFTER MULTIPLE DOSES OF FENTANYL EARLIER IN THE DAY. COMPARED TO PATIENT'S COMNPLETE CLARITY OF THOUGHT AND COMMUNICATION DURING PREVIOUS SHIFT ON 03/13/22 WITH THIS RN, PATIENT IS SLOWER TO RESPOND TO QUESTIONS ASKED OF HIM AND HAS STARTED SOME SENTENCES WITHOUT FINISHING THEM. PATIENT HAD ABDOMINAL XRAY EARLIER TODAY THAT RESULTED THE FOLLOWING: "PERSISTENT GASEOUS DISTENTION OF THE STOMACH AND SMALL BOWEL LOOPS THROUGHOUT THE ABDOMEN. CORRELATE FOR ENTERITIS AND ADYNAMIC ILEUS." UPON REVIEW OF CHART NOTES, I HAVE NOT FOUND ANY PLAN OF CARE FOR FINDINGS OF THIS IMAGING. OF NOTE, IT WAS SIGNED AT 20:06 ON 03/14/22. ORDER RECEIVED FOR PATIENT TO BE NPO AT THIS TIME. MD MILLER WILL REVIEW PATIENT'S CHART AND FOLLOW UP WITH CARE PLAN.
--- NOTE | 2022-03-15 01:46 | NUR ---
CALL TO MD RESIDENT BRADY MILLER REGARDING CT SCAN OF ABDOMEN RESULTS. 1) LARGE LOCULATED HEMATOMA IN RIGHT ANTERIOR ABDOMINAL WALL WITH SCATTERED AREAS OF ACTIVE HEMORRHAGE SEEN WITHIN HEMATOMA 2) SMALL BILATERAL PLEURAL EFFUSIONS, RIGHT GREATER THAN LEFT (NOTED ON PREVIOUS CT SCAN ON 03/12/22) 3) CARDIOMEGALY SEEN ON 03/12/22 CT). NEW SMALL COMPLEX PERICARDIAL EFFUSION. CANNOT EXCLUDE HEMOPERICARDIUM. 4) ENLARGED PROSTATE NO VISIBLE SIGNS OF BLEEDING. 03/14/22 AT 0319 H&H 12.9 & 36.9 PATIENT REPORTS PAIN IS 3/10 AT THIS TIME, DENIES NEED FOR ANALGESICS. VITAL SIGNS ARE STABLE. NO LABS ORDERED FOR THIS MORNING. ORDER RECEIVED TO KEEP PATIENT NPO, DRAW CBC & BMP THIS MORNING, CONITNUE TO MONITOR PATIENT FOR ANY SIGNS OF BLEEDING, INCREASED PAIN, INCREASED ABDOMINAL DISTENTION OR CHANGE IN VITAL SIGNS. NOTIFY MD OF SUCH. DR. MILLER WILL PASS DETAILS ON TO DAY SHIFT FOR CONSIDERATION OF POSSIBLE CONSULTS TO IR OR SURGERY. WILL CONTINUE TO MONITOR.
[2022-03-15 03:39] LABS: BASOPHILS ABSOLUTE AUTO 0.03 K/mm3 (0.00-0.23); BASOPHILS PERCENT AUTO 0 % (0-2); EOSINOPHILS PERCENT AUTO 0 % (0-6); Hematocrit 36.8 % (37.0-53.0); Hemoglobin 12.7 g/dL (13.5-17.5); IMMATURE GRAN ABSOLUTE AUTO 0.27 K/mm3 (0.00-0.10); IMMATURE GRAN PERCENT AUTO 1 % (0-1); LYMPHOCYTES PERCENT AUTO 9 % (21-46); MONOCYTES ABSOLUTE AUTO 2.67 K/mm3 (0.16-1.47); MONOCYTES PERCENT AUTO 12 % (4-13); Mean Corpuscular HGB 31.1 pg (26.0-34.0); Mean Corpuscular HGB Conc 34.5 g/dL (31.5-36.5); Mean Corpuscular Volume 90 fL (80-100); Mean Platelet Volume 9.6 fL (9.1-12.4); NEUTROPHILS PERCENT AUTO 77 % (41-73); NRBC ABSOLUTE 0.02 K/mm3 (0.00-0.02); NRBC Auto 0.1 /100 WBC (0.0-0.2); Platelet Count 216 K/mm3 (150-400); RDW Coefficient Variation 14.6 % (11.7-14.2); RDW Standard Deviation 48.2 fL (35.1-46.3); Red Blood Cell Count 4.09 M/mm3 (4.30-5.90); White Blood Cell Count 21.57 K/mm3 (4.00-11.30)
[2022-03-15 03:59] LABS: Bun/Creatinine Ratio 44.2 (12.0-20.0); Calcium, Blood 8.7 mg/dL (8.5-10.1); Creatinine, Blood 1.13 mg/dL (0.60-1.20); Potassium, Blood 3.9 mmol/L (3.5-5.5)
--- NOTE | 2022-03-15 06:23 | NUR ---
SEE PREVIOUS NOTES FOR EVENTS THROUGHOUT THE NIGHT. MR. VILLARREAL CONTINUES TO ENDORSE SEVERE ABDOMINAL PAIN TO THE RUQ AND RLQ OF THE ABDOMEN WITH GUARDING UPON PALPATION. REPORTS PAIN TO BE 8/10 AT ITS WORST. MODERATE DISTENTION OF ABDOMEN IN THE RIGHT MID TO LOWER QUADRANT. TENDERNESS TO LLQ. SURGERY CONSULT CALLED TO DR. SYLWIA BESS'S ANSWERING SERVICE AT 0540 THIS MORNING. PATIENT DOES GET SOME RELIEF WITH IV FENTANYL, AND DOES HAVE SOME "LOOPINESS" WITH ITS ADMINISTRATION. THIS DOES WEAR OFF BETWEEN DOSES. MD MILLER WAS MADE AWARE OF THIS AND SAID TO CONTINUE TO USE THE IV ANALGESIC FOR SEVERE PAIN.
[2022-03-15 09:23] LABS: Hematocrit 33.9 % (37.0-53.0); Hemoglobin 11.7 g/dL (13.5-17.5)
[2022-03-15 16:19] LABS: Hematocrit 30.9 % (37.0-53.0); Hemoglobin 10.7 g/dL (13.5-17.5)
--- NOTE | 2022-03-15 19:27 | NUR ---
SHIFT SUMMARY DR MCARTHUR SAW PT THIS AM. NO SURGICAL INTERVENTION NECESSARY. HE ORDERED A REPEAT H&H. HGB DOWN TO 10.7, DR MCARTHUR NOTIFIED. PT ABD TENDER WITH ANY PALPATION ON THE RUQ AND RLQ. MASS IS PALPABLE AND VISIBLE IN THE RUQ. PT HAD BRIEF EPISODE OF INCREASED HR TO 160'S AFTER TAKING PO MEDS. PT C/O INCREASED ABD PAIN AT THIS TIME. PT HR IN THE 110'S FOR MAJORITY OF SHIFT. PT PAIN IN THE ABD WAS CONSISTENT T/O SHIFT. DR MANCILLA WAS CONTACTED REGARDING THIS. FENTANYL 25MCG WAS INCREASED FROM Q3H TO Q2H AND OXY 5MG Q4H WAS ADDED. PT WAS MEDICATED ROUTINELY T/O WITH PRN ANALGESICS AND SEEMED TO GET SOME RELIEF INBETWEEN. PT RESPIRATIONS ELEVATED 20-24. PT STILL ON AIRVO AT 55LPM AND 80FIO2, 02 SAT 88-90%. PT BREATHING SHALLOW AT TIMES. PT FREQUENTLY TAKING OFF HIGH FLOW CANULA THIS AFTERNOON, PT DESATS TO 80'S QUICKLY AFTER REMOVING AND SLOWLY RECOVERS ONCE BACK ON. PT UNABLE TO GIVE ANSWER WHEN ASKED ABOUT REMOVING CANULA. LUBRICATION APPLIED TO INSIDE OF NARES TO HELP WITH ANY DISCOMFORT. PT INTERMITTENLY DROWSY T/O SHIFT AND SLOW TO ANSWER QUESTIONS, BUT DID ANSWER APPROPRIATELY. PT SEEMED TO BE MORE ALERT WHEN FAMILY WAS AT BEDSIDE TODAY. DR WATSON SAW THE PATIENT THIS AFTERNOON. NEW ORDERS FOR BIPAP AT NIGHT AND PRN T/O THE DAY. CONCERNS FOR HYPOVENTILATION DUE TO INCREASED ABD PAIN. DR WATSON RECOMMENDED CONTACTING RT IF BREATHING IS TOO SHALLOW. AROUND 1745 PT C/O CP AND INCREASED SOB. EKG WAS OBTAINED THAT SHOWED NO SIGNIFICANT CHANGES, MILD ST DEPRESSION NOTED. DR CUI NOTIFIED. CP SEEMS TO BE REFERRED PAIN FROM THE ABD HEMATOMA. NO NEW ORDERS REGARDING CP. PT STATING "I CAN'T BREATHE" AT THIS TIME. SPO2 AT 86-87%. RT CONTACTED AND AT BEDSIDE. PLANS TO SET UP BIPAP. PT REPOSITIONED IN BED AND MEDICATED FOR PAIN. PT 02 SAT UP TO 90% AND STATED HE WAS FEELING LESS SOB, STILL ON AIRVO. REPORT GIVEN TO BROADCAST FIELD SUPERVISOR RN. RT TO COME BACK AFTER REPORT TO SET UP BIPAP FOR PT.
[2022-03-16 00:25] LABS: Hematocrit 28.3 % (37.0-53.0); Hemoglobin 9.7 g/dL (13.5-17.5); Mean Corpuscular HGB 31.5 pg (26.0-34.0); Mean Corpuscular HGB Conc 34.3 g/dL (31.5-36.5); Mean Corpuscular Volume 92 fL (80-100); Mean Platelet Volume 9.8 fL (9.1-12.4); NRBC ABSOLUTE 0.25 K/mm3 (0.00-0.02); NRBC Auto 0.8 /100 WBC (0.0-0.2); Platelet Count 166 K/mm3 (150-400); RDW Coefficient Variation 14.8 % (11.7-14.2); RDW Standard Deviation 49.1 fL (35.1-46.3); Red Blood Cell Count 3.08 M/mm3 (4.30-5.90)
[2022-03-16 00:47] LABS: Albumin, Blood 2.7 g/dL (3.4-5.0); Albumin/Globulin Ratio 0.8 (0.8-1.8); Bilirubin, Total 4.1 mg/dL (0.1-1.0); Bun/Creatinine Ratio 36.7 (12.0-20.0); Calcium, Blood 8.6 mg/dL (8.5-10.1); Creatinine, Blood 1.58 mg/dL (0.60-1.20); Globulin, Blood 3.4 g/dL (2.2-4.0); Total Protein, Blood 6.1 g/dL (6.4-8.2)
--- NOTE | 2022-03-16 00:55 | NUR ---
Call to MD Watson regarding patient status. Patient is lethargic, responding primarily to yes and no questions. Persistent hypotension with MAP at 64 currently. SBP mostly in the 80s-90s. DBP in the 50s-70s. Urine output 240 mL in past 10 hours. 23:31 - 2 mg Bumex administered. 40 mL output since that time. Changes in lab values compared to 03/15/22 AM labs HGB 9.7 DECREASED FROM 12.7 WBC 30.8 INCREASED FROM 21.57 (MORE THAN DOUBLED SINCE 03/14/22 AT 13.45) CREATININE 1.58 INCREASED FROM 1.13 BILIRUBIN 4.1, INCREASED FROM 3.1 ADVISED OF 03/15 CT RESULTS REGARDING HEMATOMA AND NOT BEING A CANDIDATE FOR SURGERY PER DR. MCARTHUR. ORDER RECEIVED FOR CHEST X-RAY IN THE MORNING.
--- NOTE | 2022-03-16 02:47 | NUR ---
SPOKE TO ORIENTAL MEDICINE PRACTITIONERADRIANA PRASAD REGARDING PATIENT STATUS. MAP INTERMITTENTLY LESS THAN 65 (SEE PREVIOUS NOTES REGARDING SBP/DBP TRENDS). PT REMAINS TACHYCARDIC IN THE 100S - 110S. URINE OUTPUT IS 30 mL IN LAST TWO HOURS. PT FIGHTING BIPAP AT TIMES. CHANGES IN XRAY FROM PREVIOUS. SHANICE IS REACHING OUT TO DR. BECERRA REGARDING ONGOING CONCERN FOR PATIENT STATUS.
--- NOTE | 2022-03-16 03:15 | NUR ---
PATIENT OFF BIPAP AND ON AIRVO DUE TO FREQUENCY OF REPEATED REMOVAL OF BIPAP BY PATIENT.
--- NOTE | 2022-03-16 03:25 | NUR ---
BIPAP PLACED BACK ON PATIENT DUE TO POOR OXYGENATION AND INCREASED WORK OF BREATHING.
--- NOTE | 2022-03-16 03:40 | NUR ---
PATIENT TRANSFERRED TO ICU 9. REPORT GIVEN TO RECEIVING NURSE PRIOR TO TRANSFER.
--- NOTE | 2022-03-16 05:59 | NUR ---
CALLS X 2 TO PATIENT'S SON DONTA TO ADVISE OF TRANSFER OF CARE TO ICU. CALL GOES IMMEDIATELY TO VOICEMAIL (NO RING). MESSAGE LEFT ON 2ND ATTEMPT REQUESTING CALL BACK.
--- NOTE | 2022-03-16 06:16 | NUR ---
PATIENT TRANSFERRED TO ICU FROM PCU. AOX1 AND REPEATEDLY PULLING AT BIPAP MASK. REORIENTATION APPLIED BUT PATIENT CONTINUTES TO PULL AT TUBES. BILATERAL SOFT WRIST RESTRAINTS APPLIED. SINUS TACHYCARDIA WITH LEVO GTT INFUSING TO MAINTAIN MAP>65. BIPAP 15/10 80%. KO IN PLACE AND PATENT.
--- NOTE | 2022-03-16 06:19 | NUR ---
RECEIVED RETURN CALL FROM PATIENT'S SON, DONTA. UPDATE PROVIDED ON PATIENT'S CONDITION AND REASON FOR TRANSFER TO ICU. DONTA STATED THAT HE WILL REACH OUT TO PATIENT'S SPOUSE BAMBI REGARDING THIS STATUS CHANGE.
--- NOTE | 2022-03-16 07:29 | NUR ---
CARE OF PT ASSUMED AT 0700. PT BIPAP DEPENDENT, 21/12 (14), 80%, PT RESP HIGH 20'S. PT HYPOTENSIVE W LEVOPHED AT 6MCG RUNNING VIA PERIPHERAL IV. BP 75/57, 75CC U/O LAST NIGHT. SHEN CUI CALLED AND UPDATED. PICC LINE TO BE PLACED.
--- NOTE | 2022-03-16 08:35 | NUR ---
DR WATSON CALLED FOR UPDATE, NEW ORDERS BEING PLACED. PICC LINE PLACED W/O DIFFICULTY. DR CUI AT BEDSIDE NOW SPEAKING W FAMILY.
[2022-03-16 09:09] LABS: Hematocrit 27.1 % (37.0-53.0); Hemoglobin 9.2 g/dL (13.5-17.5)
--- NOTE | 2022-03-16 10:11 | NUR ---
DR WATSON CALLED FOR MAP <60. LEVOPHED TITRATED UP TO 20MCG, PRECEDEX HAD BEEN UP TO 0.4MCG. PT AWAKE AND MOANING, PRECEDEX LOWERED TO 0.2MCG. VASOPRESSIN ORDERED AND STARTED. DR WATSON AT BEDSIDE WITHIN MINUTES OF CALL.
[2022-03-16 11:42] LABS: PCO2 Arterial 36.8 mmHg (35-45); PO2 Arterial 72.7 mmHg (80-100)
--- NOTE | 2022-03-16 11:50 | NUR ---
ART LINE PLACED TO RIGHT AXILLA ART BY DR WATSON. EPI STARTED AND TITRATED TO 3MCG. UNIT OF PRBC TO BE GIVEN
--- NOTE | 2022-03-16 13:13 | NUR ---
CT OF ABD W CONTRAST COMPLETE, PT LASHA WELL. I UNIT PRBC'S STARTED. BP IMPROVING. LEVOPHED DECREASED TO 20MCG.
--- NOTE | 2022-03-16 14:38 | NUR ---
DR WATSON AT BEDSIDE UPDATING FAMILY. PT HAS BEEN ACCEPTED AT [facility], AWAITING BED. UNIT OF PRBC GIVEN WITHOUT ANY ADVERSE REACTION. LEVOPHED AT 20MCG, EPI AT 4MCG, VASO AT 0.04UNITS. ECTOPY INCREASED W PVC'S,IRREG. STAT LABS ORDERED.
[2022-03-16 15:13] LABS: Hematocrit 27.6 % (37.0-53.0); Hemoglobin 9.6 g/dL (13.5-17.5)
[2022-03-16 15:29] LABS: International Normalized Ratio 1.75; Prothrombin Time Results 17.7 Sec (9.7-11.5)
[2022-03-16 15:52] LABS: Albumin, Blood 2.6 g/dL (3.4-5.0); Albumin/Globulin Ratio 0.8 (0.8-1.8); Bilirubin, Total 4.7 mg/dL (0.1-1.0); Bun/Creatinine Ratio 37.6 (12.0-20.0); Calcium, Blood 7.9 mg/dL (8.5-10.1); Creatinine, Blood 1.7 mg/dL (0.60-1.20); Globulin, Blood 3.2 g/dL (2.2-4.0); Magnesium, Blood 2.3 mg/dL (1.6-2.4); Phosphorus, Blood 5.6 mg/dL (2.5-4.9); Potassium, Blood 3.7 mmol/L (3.5-5.5); Total Protein, Blood 5.8 g/dL (6.4-8.2)
--- NOTE | 2022-03-16 15:57 | NUR ---
AROUND 1530 RT PLACED PT ON AIRVO PER DR WATSON. AROUND 1538 PT WENT INTO WHAT APPEARED TO BE SVT W RATE 150-170. BP QUICKLY FELL, SEE RECORD. DEEP COUGH INDUCED, PT RYTHYM THEN CONVERTED TO PREVIOUS RHYTHM, SINUS 90'S W ECTOPY. BP STARTED TO CLIMB UP AT THAT POINT BUT PRESSORS WHERE INCREASED DURING SIGNIFICANT HYPOTENION. LEVOPHED INCREASED TO 30MCG, EPI TO 5MCG. PADS PLACED, CRASH CART AT BEDSIDE. DR WATSON AT BEDSIDE SHORTLY AFTER. BIPAP REPLACED. W PRESSURE CHANGES:07/11 RATE 14, 45%. LABS GIVEN TO DR WATSON. ADDITIONAL 1 UNIT PRBC'S ORDERED AND GIVEN. LEVOPHED HAS BEEN TITRATED BACK DOWN TO 20MCG, EPI REMAINS AT 5MCG.
[2022-03-16 16:23] LABS: Influenza A, PCR NEGATIVE (NEGATIVE); Influenza B, PCR NEGATIVE (NEGATIVE); Resp Syncytial Virus, PCR NEGATIVE (NEGATIVE); SARS-Cov-2 (COVID-19) PCR, MMC NEGATIVE (NEGATIVE)
[2022-03-16 16:55] LABS: PCO2 Arterial 39.6 mmHg (35-45); PO2 Arterial 53.3 mmHg (80-100); pH Blood Arterial 7.48 (7.35-7.45)
--- NOTE | 2022-03-16 17:39 | NUR ---
PT WENT BRIEFLY IN AND OUT OF SVT W BRIEF FALL IN BP, NO INTERVENTIONS REQUIRED. K+ IV ORDERED BY DR WATSON. PRECEDEX OFF, FENT TO BE USED FOR SEDATION ADJUNCT PER DR WATSON. ABG RESULTS GIVEN TO DR WATSON.
--- NOTE | 2022-03-16 18:35 | NUR ---
PT WENT INTO SVT W DECREASED PROFUSION/HYPOTENSION AROUND 1807, DR WATSON CALLED TO BEDSIDE. ADENOSINE 6MG GIVEN AT 1808. EPI INCRESAED TO 8MCG, LEVO INCREASED TO 30MCG. PT AGAIN WENT INTO SVT, ADENOSINE 12MG GIVEN AT 1814. PT WITH INCREASED ECTOPY/IRREG/PVC'S. AMIO 150MG GIVEN PUSH PER DR WATSON PT UNSTABLE AND LOSING ONCE AGAIN. AMIO GTT STARTED AT 1834, K+RIDER IV STARTED, H&H SENT STAT. PT NOW SINUS W PVC'S, RATE 90'S. EPI AT 6MCG, LEVO AT 25MCG.
[2022-03-16 18:42] LABS: Hematocrit 30.2 % (37.0-53.0); Hemoglobin 10.5 g/dL (13.5-17.5)
--- NOTE | 2022-03-16 19:13 | NUR ---
BEDSIDE REPORT GIVEN, GTT'S CHECKED. REMAINS AT BEDSIDE. LEVOPHED 25MCG, EPI 6MCG, VASOPRESSIN AT 0.04UNITS, AND POTASSIUM INFUSING TO PICC LINE. AMIO AT 1MG/HR INFUSING WELL. PT REMAINS ON BIPAP 5/5, 50%. FENTANYL GIVEN FOR PAIN, PT MOANING.
[2022-03-16 22:27] LABS: Hematocrit 29.4 % (37.0-53.0); Hemoglobin 10.3 g/dL (13.5-17.5)
[2022-03-17 04:00] LABS: Hemoglobin 8.9 g/dL (13.5-17.5); Mean Corpuscular HGB 31.7 pg (26.0-34.0); Mean Corpuscular HGB Conc 35.6 g/dL (31.5-36.5); Mean Corpuscular Volume 89 fL (80-100); Mean Platelet Volume 10.8 fL (9.1-12.4); NRBC ABSOLUTE 0.91 K/mm3 (0.00-0.02); NRBC Auto 2.7 /100 WBC (0.0-0.2); Platelet Count 113 K/mm3 (150-400); RDW Coefficient Variation 15.4 % (11.7-14.2); RDW Standard Deviation 49.4 fL (35.1-46.3); Red Blood Cell Count 2.81 M/mm3 (4.30-5.90); White Blood Cell Count 33.42 K/mm3 (4.00-11.30)
[2022-03-17 06:04] LABS: Magnesium, Blood 1.8 mg/dL (1.6-2.4)
--- NOTE | 2022-03-17 06:05 | NUR ---
PATIENT CONFUSED, ORIENTED X 2. INTERMITTENTLY FOLLOWS COMMANDS. BILATERAL WRIST RESTRAINTS IN PLACE DUE TO PATIENT PULLING AT LINES AND BIPAP. SR WITH DECREASING VASOPRESSOR REQUIRMENTS TO KEEP MAP GREATER THAN 65. VASOPRESSIN, AMIODARONE, AND LEVOPHED GTT INFUSING. EPINEPHRINE TURNED OFF AT 0600. CPAP MODE PRESSURE 5 WITH 50% FIO2. KO IN PLACE AND PATENT.
[2022-03-17 06:11] LABS: Albumin, Blood 2.1 g/dL (3.4-5.0); Albumin/Globulin Ratio 0.7 (0.8-1.8); Bilirubin, Total 5.4 mg/dL (0.1-1.0); Bun/Creatinine Ratio 46.5 (12.0-20.0); Calcium, Blood 6.4 mg/dL (8.5-10.1); Creatinine, Blood 1.14 mg/dL (0.60-1.20); Globulin, Blood 2.9 g/dL (2.2-4.0); Potassium, Blood 3.1 mmol/L (3.5-5.5)
[2022-03-17 06:13] LABS: Phosphorus, Blood 2.5 mg/dL (2.5-4.9)
--- NOTE | 2022-03-17 08:11 | NUR ---
CARE OF PT ASSUMED AT 0700. PT DROSWY, MOANING. ABLE TO FOLLOW COMMANDS. ORIENTED TO NAME, PLACE, FAMILY. PT RESTLESS, PULLS DOWN GOWN WITH RESTRAINTS ON. PT W LOW GRADE TEMP 99.1, SKIN WARM, FLUSHED. BLANKET REMOVED SHEET PLACED. LEVOPHED AT 20MCG, VASOPRESSIN AT 0.04UNITS, EPI WAS INITIALLY ON STANDBY, RESTARTED AT 1MCG, AMIO GTT AT 0.5MG/HR. CPAP 5, FIO2 INITIALLY AT 50%, NOW AT 65%. MASK REMOVED BRIEFLY FOR ASSESSMENT AND ORAL CARE. PT HAS SHALLOW/SPLINTING RESP, MILDLY LABORED. ABLE TO ANSWER QUESTIONS W ONE WORD; MAIN COMPLAINT IS ABD PAIN, CAN NOT GIVE NUMBER. MASK REPLACED AFTER JUST 5MIN SATS STARTED TO TREND DOWN. BRUISING TO LEFT LAT/FLANK ABD WHICH WAS OUTLINED YESTERDAY HAS EXTENDED PASS THE LINE. ABD FIRM, AND TENDER TO PALP. RT AT BEDSIDE DURING SHORT BREAK. KPHOS 20MMOL STARTED. DR AQUINO CALLED W UPDATE, STAT H&H ORDERED AND SENT. AWAITING BED AT [facility], BUFFER CHROME CALLED THIS AM TO GIVE UPDATE. PT HAS LESS ECTOPY THAN LAST NIGHT, PT IN SINUS W RATE 80-90'S.
[2022-03-17 08:39] LABS: Hematocrit 28.8 % (37.0-53.0); Hemoglobin 10.2 g/dL (13.5-17.5)
--- NOTE | 2022-03-17 09:10 | NUR ---
DR AQUINO AT BEDSIDE. UPDATE GIVEN TO PT'S SON FAROOQ. FENTANYL GIVEN FOR PAIN. DR AQUINO INCREASED CPAP PRESSURE TO 8, RT NOTIFIED. PT APPEARS MORE COMFORTABLE AFTER FENT. REPEAT H&H STABLE.
--- NOTE | 2022-03-17 11:53 | NUR ---
Upon receiving a request for spiritual care, I visit with patient and his spouse, Aurelia. Patient is resting for most of the visit and so Aurelia talked at length about the family dynamics, patient's dire condition and the complications surrounding the details of care fro their 40 y/o special needs son. Aurelia shares about patient's strong [employer] yessica and that their peoplesoft taleo manager from [employer] in [place] would be stopping by the hospital for spiritual support. I encourage self care and after some conversation with the patient provide prayer which patient and Aurelia voice much appreciation for. I supply therapeutic listening and gentle adult school counselor for Aurelia with resulted in signs of a reduction in stress. I will continue to remain available to pt and family.
--- NOTE | 2022-03-17 12:11 | NUR ---
PT AGITATED, VERY RESTLESS/STIFF, GRIPING LINEN, ATTEMPTS TO PULL OFF GOWN, MOANING, SATS DROPPED TO 87%. FENTANYL 25MCG GIVEN FOR PAIN. PT CALM NOW AND SATS BACK UP TO 90%.
--- NOTE | 2022-03-17 15:00 | NUR ---
O2 REQUIREMENTS INCREASING. EPI UP TO 2MCG. PT RESTLESS AND AGITATED. DR AQUINO UPDATED, ABG ORDERED.
[2022-03-17 15:10] LABS: PCO2 Arterial 33.2 mmHg (35-45); pH Blood Arterial 7.52 (7.35-7.45)
--- NOTE | 2022-03-17 15:11 | NUR ---
PT'S DIRECTOR CLINICAL DATA AT BEDSIDE. EPI AT 2MCG, LEVOPHED REMAINS AT 20MCG. FIO2 INCREASED TO 70%. AWAITING ABG RESULTS.
--- NOTE | 2022-03-17 15:21 | NUR ---
CRITICAL ABG CALLED TO DR AQUINO, STAT CHEST XRAY ORDERED. RT AT BEDSIDE.
--- NOTE | 2022-03-17 15:53 | NUR ---
CHEST XRAY COMPLETED. FIO2 AT 100%, PT SATS 100%. DR AQUINO UPDATED PT'S
--- NOTE | 2022-03-17 17:24 | NUR ---
PT SLEEPING, APPEARS RESTFUL. PT'S SON AT BEDSIDE, DR AQUINO UPDATED SON. NO CHNAGES TO GTT'S AT THIS TIME. CPAP 8, 100% FIO2. PT DOES NOT TOLERATE BREAKS OFF CPAP AND DESATURATED W LAST TURN. SATS 100% NOW.
--- NOTE | 2022-03-17 21:30 | NUR ---
ASSUMED CARE OF PT AT 1900. SON FAROOQ ASKED TO TALK TO REGARDING COMFORT CARE. SON STATES " MY DAD IS GETTING WORSE AND I DO NOT WANT TO SEE HIM SUFFER." SPOKE TO SANDRA, SHE STATES HER WISHES ARE TO CONTINUE WITH COMFORT CARE MEASURES. CALLED REGARDING FAMILY WISHES, ORDERS PLACE. PT MEDICATED FOR COMFORT/PAIN/ANXIETY. PT TAKEN OFF CPAP AND PLACED ON OXYGEN VIA OXYMIZER FOR COMFORT. SONS FAROOQ AND LEANNE AT BEDSIDE.
--- NOTE | 2022-03-17 21:34 | NUR ---
COMFORT CARE SPOKE WITH PHIL (FAROOQ) PT SON'S IN ROOM ABOUT COMFORT CARE AND EXPLAINED TURNING OFF MEDICATIONS TO KEEP BP UP AND REMOVING PT FROM BIPAP/CPAP. BOTH SONS EXPRESSED UNDERSTANDING REGARDING STOPPING TX AND THAT PT WILL PASS AWAY. THEY REQUEST TO GO FORWARD WITH COMFORT CARE. CALLED BAMBI AT HOME SHE STATES,"HE HAS HAD THIS TERMINAL ILLNESS FOR A LONG TIME AND I AGREE WITH THE BOYS REGARDING COMFORT CARE". NOT COMING IN DUE TO CAREING FOR DISABLED CHILD. SPOKE WITH DR AQUINO AND OBTAINED ORDERS FOR COMFORT CARE.
--- NOTE | 2022-03-17 21:54 | NUR ---
[facility] NOTIFIED REGARDING PT GOING COMFORT CARE
--- NOTE | 2022-03-17 22:35 | NUR ---
Call back: Entered room and pt's sons Lewis and David were present along with Lewis's spouse. Lewis began to reminisce briefly before RN's enter and confirm pt's demise. The family was tearful but grieving appropriately. Verbal supplication offered on behalf of the family for comfort and as a means to honor decendent. Family voiced gratitude for the intervention. Sons wanted to call pt's spouse before making a decision on home. Updated RN.
--- NOTE | 2022-03-17 23:10 | NUR ---
TOD 2219, VERIFIED WITH CHARGE NURSE ALEXANDRA. IRINA NOTIFED, ALONG WITH , , AND . SON FAROOQ TOOK PATIENT BELONGINGS. HOME CALLED.
== END 2022-03-17 22:20 | DRG 291 ==
LOC: ER 14:58 → ICUW 20:38 → MEDS 20:38 → PCU 03-07 08:52 → ICUW 03-16 03:35
PROVIDERS: Emergency Medicine; Family Medicine; Internal Medicine; Internal Medicine Critical Care Medicine; Surgery; ADMIT Internal Medicine
PROC: 5A09357 Assistance with Respiratory Ventilation, Less than 24 Consecutive Hours, Continuous Positive Airway Pressure (ICD-10-PCS; 2022-03-06)
PROC: 3E033XZ Introduction of Vasopressor into Peripheral Vein, Percutaneous Approach (ICD-10-PCS; principal; 2022-03-16)
PROC: 02HV33Z Insertion of Infusion Device into Superior Vena Cava, Percutaneous Approach (ICD-10-PCS; 2022-03-16)
PROC: 30233N1 Transfusion of Nonautologous Red Blood Cells into Peripheral Vein, Percutaneous Approach (ICD-10-PCS; 2022-03-16)
PROC: 03HY32Z Insertion of Monitoring Device into Upper Artery, Percutaneous Approach (ICD-10-PCS; 2022-03-16)
PROC: 4A133B1 Monitoring of Arterial Pressure, Peripheral, Percutaneous Approach (ICD-10-PCS; 2022-03-16)
PROC: 4A133J1 Monitoring of Arterial Pulse, Peripheral, Percutaneous Approach (ICD-10-PCS; 2022-03-16)
DX: I50.33 Acute on chronic diastolic (congestive) heart failure (principal); J96.01 Acute respiratory failure with hypoxia; E87.1 Hypo-osmolality and hyponatremia; E27.40 Unspecified adrenocortical insufficiency; Z28.21 Immunization not carried out because of patient refusal; Z20.822 Contact with and (suspected) exposure to COVID-19; R57.0 Cardiogenic shock; I50.810 Right heart failure, unspecified; I27.20 Pulmonary hypertension, unspecified; G47.33 Obstructive sleep apnea (adult) (pediatric); I25.10 Atherosclerotic heart disease of native coronary artery without angina pectoris; J44.9 Chronic obstructive pulmonary disease, unspecified; I25.2 Old myocardial infarction; Z86.16 Personal history of COVID-19; Z87.891 Personal history of nicotine dependence; Z88.0 Allergy status to penicillin; Z88.1 Allergy status to other antibiotic agents; Z88.2 Allergy status to sulfonamides; Z88.8 Allergy status to other drugs, medicaments and biological substances; Z79.899 Other long term (current) drug therapy
CPT/HCPCS: 0241U; 36415; 36430; 36569; 36620; 51702; 71045; 71260; 74018; 74174; 74176; 74177; 80048; 80053; 81001; 82803; 83605; 83735; 83880; 84100; 84132; 84484; 85014; 85018; 85025; 85027; 85610; 85730; 86850; 86900; 86901; 86923; 92610; 93005; 93010; 93306; 93308; 93321; 94640; 94660; 94664; 94762; 99285-25; A9270; C1751; C1894; J0153; J0171; J0282; J1170; J1650; J1720; J1940; J2060; J2270; J3010; J3370; J3480; J7040; J7050; J7060; P9016; Q9967